=== PATIENT | female | born 1950 | race Caucasian/White ===

== ENCOUNTER → 2020-12-21 09:47 | Outpatient (CLI) | payer MEDICARE, OTHER, SELFPAY ==
--- NOTE | 2020-12-21 10:07 | DI.CT.S_ITS ---
PROCEDURE: CT LUMBAR SPINE WO CON INDICATIONS: Spinal stenosis, lumbar region without neurogenic TECHNIQUE: Noncontrast 3 mm thick sections acquired from the T12 level to the sacrum. Sagittal and coronal reformats were constructed. For radiation dose reduction, the following was used: automated exposure control. COMPARISON: [facility], CT, CT ABDOMEN PELVIS WITH CONTRAST, 12/02/2018, 14:08. [facility] [place], CR, XR LUMBAR SPINE 2 OR 3 VIEWS, 05/29/2019, 9:43. [facility], MR, MR LUMBAR SPINE WITHOUT CONTRAST, 06/16/2019, 17:07. FINDINGS: Image quality: There is artifact associated with the metallic hardware. Bones: No acute vertebral body compression fractures. No suspicious lytic or blastic bony lesions. No pars defects. There is moderate to prominent levoconvex lumbar scoliosis. T12-L1: No significant abnormality is seen. L1-L2: Moderate to severe loss of disc height is seen. Endplate irregularity and sclerosis can be seen. Vacuum disc phenomenon is seen at this level. Mild to moderate disc bulge is seen. There is a central/left disc protrusion. There is moderate left-sided and no right-sided neural foraminal narrowing seen. Mild central canal narrowing is seen. When comparison is made with the prior images, these findings are similar. L2-L3: At least moderate loss of disc height is seen. Vacuum disc phenomenon is seen at this level. Endplate irregularity and sclerosis can be seen. Moderate facet joint hypertrophy is seen. Mild bilateral neural foraminal narrowing is seen. Mild central canal narrowing is seen. L3-L4: At least moderate loss of disc height is seen. Endplate irregularity and sclerosis can be seen. Vacuum disc phenomenon is seen at this level. Moderate generalized disc bulge is seen. There is mild left-sided and at least moderate right-sided neural foraminal narrowing seen. Mild to moderate central canal narrowing is seen. L4-L5: Relo-on-fzgmkzso loss of disc height is seen. Vacuum disc phenomenon is seen at this level. Endplate irregularity and sclerosis can be seen. At least moderate disc bulge is seen. Posteriorly projected endplate osteophytes are seen. Moderate to prominent facet hypertrophy can be seen. There is zflo-pp-ayrvakju right-sided and moderate left-sided neural foraminal narrowing seen. Moderate central canal narrowing is seen. L5-S1: Postoperative changes are seen, with bilateral pedicle screws and vertical fixation rods. Screws appear well placed, with the tip of the right S1 screw seen protruding beyond the anterior cortex. There is a disc spacer seen. There has been removal of portions of the posterior elements. Pgcw-tw-[id number] loss of disc height is seen. Vacuum disc phenomenon is seen at this level. Mild to moderate disc bulge is seen. At least moderate facet hypertrophy can be seen. There is mild right-sided and at least moderate left-sided neural foraminal narrowing seen. Soft tissues: No retroperitoneal masses or hematomas. Visualized aorta is normal in caliber. Atherosclerotic calcification is noted. Colonic diverticulosis is seen, without findings of active diverticulitis. IMPRESSION: Intact appearing L5-S1 postoperative hardware. Multiple levels of degenerative change are seen, which are similar to the prior MRI. Moderate to prominent levoconvex lumbar scoliosis. Dictated by: Edgar Estrada M.D. on 12/21/2020 at 11:18 Approved by: Edgar Estrada M.D. on 12/21/2020 at 11:26
== END ==
PROVIDERS: Family Provider Family Medicine; PCP Family Medicine; Referring Provider Orthopaedic Surgery Orthopaedic Surgery of the Spine; Visit Provider Orthopaedic Surgery Orthopaedic Surgery of the Spine
DX: Z01.818 Encounter for other preprocedural examination (principal); M48.061 Spinal stenosis, lumbar region without neurogenic claudication; R73.9 Hyperglycemia, unspecified; M47.816 Spondylosis without myelopathy or radiculopathy, lumbar region; M47.817 Spondylosis without myelopathy or radiculopathy, lumbosacral region; M41.86 Other forms of scoliosis, lumbar region
CPT/HCPCS: 72131; 93005; 93010

== ENCOUNTER → 2021-01-23 10:48 | Outpatient (CLI) | payer MEDICARE, OTHER, SELFPAY ==
[2021-01-23 15:20] LABS: COVID19 -Nasal RAPID Negative (Negative)
== END ==
PROVIDERS: Family Provider Family Medicine; PCP Family Medicine; Visit Provider Physician Assistant
DX: Z01.812 Encounter for preprocedural laboratory examination (principal); Z20.822 Contact with and (suspected) exposure to COVID-19
CPT/HCPCS: 87635

== ENCOUNTER 2021-01-25 07:19 | Inpatient (IN) | payer MEDICARE, OTHER, SELFPAY ==
[2021-01-23 12:59] VITALS: BMI 25.9
[2021-01-25] VITALS (21 sets, daily range): BP systolic 113–195; BP diastolic 58–98; PULSE 77–106; RESP 8–19; TEMP 36.1–36.9; O2SAT 4–99; BMI 25.9
--- NOTE | 2021-01-25 | DI.RAD.S_ITS ---
PROCEDURE: XR LUMBAR SPINE 2-3V INDICATIONS: L2-5 TLIF, L2-S1 PSF W/INSTRUMENTATION L5-S1 LUMBAR HWR,EXPL TECHNIQUE: 4 low resolution fluoroscopic spot films were obtained intraoperatively COMPARISON: [facility] , L-SPINE 2-3 VIEWS, 09/20/2016, 13:28. FINDINGS: Low resolution spot films of the lower lumbar spine show sequential placement of discectomy and fusion spacer grafts and posterior adam and screw instrumentation. Overlying artifact noted. IMPRESSION: Fluoroscopic guidance Approved by: Kamar Swenson M.D. on 01/25/2021 at 14:53
[2021-01-25] MEDS: LACTATED RINGERS 1,000 ML 42 ML IV ×3 (08:25→12:43)
[2021-01-25] MEDS: MIDAZOLAM 2 MG/2 ML VIAL IV (08:46)
[2021-01-25] MEDS: CEFAZOLIN 1 GM VIAL 2 GM IV (09:05)
--- NOTE | 2021-01-25 09:40 | SUR.OPER ---
Prone on spine table, head in foam head support, padded chest and pelvic supports, gel pad at knees, lower legs supported by pillows; nipples, genitalia and toes free of pressure, arms secured on foam padded arm boards at <90 degrees abduction. Tape over blanket at thigh secured to table.
[2021-01-25] MEDS: BUPIVACAINE LIPOSOME 266 MG/20 ML VIAL INJ (09:46)
[2021-01-25] MEDS: BUPIVACAINE 0.25% W/ EPI 30 ML VIAL INJ (09:47)
--- NOTE | 2021-01-25 14:35 | PM.OP.1 ---
Operative Date/Time/Diagnoses Date of procedure: 01/25/21 Time of procedure: 08:44 Pre-op diagnosis: 1. Lumbar scoliosis 2. Hx of L5-S1 fusion with instrumentation 3. Lumbar spinal stenosis with neurogenic claudication 4. Lumbar spondylolisthesis Post-op diagnosis: same Procedure & Clinicians Procedure: 1. L3-4, L4-5 posterolateral and posterior interbody fusion 2. L3-4, L4-5 posterior interbody cage placement 3. L5-S1 posterior non-segmental instrumentation removal 4. L5-S1 revision laminectomy with exploration of fusion 5. L3-4, L4-5, L5-S1 posterior segmental instrumentation with pedicle screw placement 6. L5-S1 posterolatearl fusion 7. [place] of bone marrow from iliac crest through a separate incision 8. Utilization of microsurgical technique and operating microscope 9. Robotic assisted surgery with navigation Same procedure as scheduled: Yes Indications: Patient has been having chronic back pain and worsening lumbar radiculopathy. Patient had prior fusion surgery more than a year ago with progressively worsening back pain and bilateral lower extremity weakness numbness consistent with neurogenic claudication. Patient failed multiple conservative management with worsening pain weakness and numbness in her lower extremity. Patient has been having difficulty performing activity of daily living. After discussing risks benefits of treatment options, patient elected proceed with surgery. Surgeon: Bryce Evangelista Collision Worker: Danisha Romano Click Yes if Unassisted: No Anesthesia Type: General Operative Notes Closure Type: primary Specimen(s): none sent Prosthetic devices, grafts, tissues, transplants, or devices: Globus CREO MIS screws, Rise cages Applied: catheter Estimated Blood Loss (mL): 200 Blood products transfused: none Procedure in detail: Patient was seen in the preoperative area. Risks and benefits of the surgery was discussed with the patient. Informed consent was obtained from the patient and placed in the chart. Surgical site was marked. Patient was taken to the operative room. General anesthesia was administered. Prophylactic antibiotic was given to the patient less than 30 min before the incision was made. Patient was placed into a prone position on the Bj table. Patient's back was then prepped and draped in the sterile fashion. Time-out was performed at this time. After patient was prepped and draped, patient's PSIS was palpated and marked bilaterally. Small 1 cm incision was made over the PSIS for placement of the reference probes. Two trocar was placed into the PSIS 1 on each side. The reference probe was attached to the trocar of the reference apparatus. At this time the C-arm imaging was used to confirm AP and lateral of L3, L4, L5, and S1 vertebrae and merged the C-arm imaging using the [employer] robotic navigation system with the CT of the lumbar spine. After successful merging was completed and confirmed, skin marker was used to gilmar out the skin incision using the [employer] robotic arm. Bilateral incision was made at this time. Using patient's previous scar incision was made over the L5-S1 interval on the right side. Fascia was incised in line with skin incision. Patient's previously placed hardware over the L5-S1 level was identified by dissecting down to the level the hardware using a Bovie and a Clemente. The locking caps which was removed using [employer] screwdriver. The locking adam was then removed from the tulips of the pedicle screws using a Papo. The pedicle screws were then removed using the screwdriver. The screws were found to have good purchase. Pre templated trajectory was used and guided using the [employer] robotic navigation system for left L3, L4, L5 and S1 pedicle screws and right L3, L4 L5, and S1 pedicle screws placement. The right L4 pedicle was identified to have a fracture through right prior to this recent surgery, confirmed on the recent CT scan. Pedicle screw was attempted to be placed into the right L4 pedicle which was found to have poor purchase and decision was made to remove the screw pedicle due to its poor purchase. This was done by using the robotic arm to guide the high-speed bur to make a cortical entry point. Next a drill was placed also using the robotic arm and guided using the navigation system drilling partially through bilateral L3, L4, L5, S1 pedicles except right L4 pedicle. Next L3, L4, L5, S1 pedicle screws it was pre templated and measured was placed onto the power auto transport driver and inserted into the pedicles bilaterally. After all 7 screws were placed C-arm imaging was taken of both AP and lateral to confirm the placement. Excellent placement of the screws were confirmed and a matched precisely with the pre planned screw placement using the navigation system. MARs retractor was inserted using [employer]ivation guidence. Globus MARS retractors was placed inside the incision and docked onto the L3, L4 lamina. Using microsurgical technique and operating microscope, a L3, L4 laminectomy and L3-4, L4-5 facetectomy was performed using a Kerrison rongeur. Patient was found have severe lateral recess and neural foramen stenosis which was fully decompressed after the laminectomy facetectomy. More than 75% of the facets were removed during the process of decompression rendering L3-4, L4-5 level grossly unstable and required a fusion procedure at the same time. The disc space at L3-4, L4-5 was identified, and a total diskectomy was performed at L3-4, L4-5 level. The endplates were decorticated using a rasp and shaver. The total diskectomy and decortication was performed at L3-4, L4-5 level in order to to accomplish a L3-4, L4-5 fusion. The local bone from the laminectomy and facetectomy was saved for local bone grafting. After the total diskectomy and decortication was completed, Trifecta bone graft material was combined with local bone that was harvested earlier. At this time, a separate skin is incision was made over the iliac crest. A Jamshidi needle was inserted into the iliac crest through a separate skin incision. 5 cc of bone marrow aspiration was obtained through the separate skin incision using a Jamshidi needle from the iliac crest. The bone marrow aspiration was combined with local bone and the Trifecta bone grafting material. The bone grafting material was placed into the L3-4, L4-5 interbody space along with a expandable cage. The cage was expanded to its maximum height using the torque limiting screwdriver. The disc preparation as well as the cage insertion were also performed under navigation guidance. After the cage was placed, AP and lateral C-arm imaging was taken to confirm placement of the cage and excellent position was confirmed. The fusion mass on the left side of L5-S1 was exposed by performing a left-sided hemilaminectomy at L5-S1 level. The hemilaminectomy was performed using the Kerrison rongeur to undercut the lamina as well removing additional epidural scar tissue for purpose of decompressing the epidural space. The fusion mass was explored and was found have visible motion indicating pseudoarthrosis. Globus MARS retractor was inserted and docked onto the L3-4, L4-5 L5-S1 posterolateral gutter. Using the power drill, posterior-lateral decortication was performed at L3-4, L4-5 L5-S1 level until bleeding cortical bone was identified. The remaining bone grafting material was placed into the L3-4, L4-5 L5-S1 posterior lateral gutter he order to accomplish posterolateral fusion at the L3-4, L4-5 L5-S1 level. At this time the tulips were attached to the L3, L4-L5 and S1 pedicle screw shanks. This was done in L3 L4-L5 S1 pedicles bilaterally except the right L4 pedicle which was left un nstrumented on purpose. After measuring the length of the rods, they were inserted into the tulips of the pedicle screws and locked in place using locking caps and torque limiting screwdriver bilaterally. Total 7 caps and 2 titanium rods was used in order to complete the posterior instrumentation construct. Previously L2-3 level and possibly L1 pedicle were considered to be surgically instrumented. Due to patient's congenitally small pedicles as well as deformity and osteopenia, reliable robotic navigation was not able to be accomplished at L1 and L2 level. Decision was made to not perform the L2-3 level fusion and the L1-L2 pedicle screw placement intraoperatively. After all the hardware was placed, and confirmed with AP and lateral C-arm imaging, the wound was then irrigated with sterile normal saline and packed with Ray-Hiram gauze for 3 min to accomplish hemostasis. After the gauze was removed the deep fascia was closed with #1 Vicryl suture. The subcutaneous layer was closed with 2-0 Vicryl. The skin was closed with skin parrish. Patient tolerated the procedure well. There were no complications. Neuro monitoring system was used to monitor patient's neurologic status throughout entire procedure. There was no disturbance of the neural monitoring signals throughout the case. Complications: none Post-operative Condition: stable Disposition: PACU Plan for aftercare: Admit to inpatient hospital
[2021-01-25] MEDS: fentaNYL 100 MCG/2 ML INJ 50 MCG IV ×2 (14:56→15:20)
[2021-01-25] MEDS: HYDROMORPHONE 2 MG INJ ×4 (15:05→15:58)
[2021-01-25] MEDS: LORazepam 2 MG/ML INJ 0.25 MG IV (15:09)
[2021-01-25] MEDS: hydrOXYzine 50 MG/ML INJ 25 MG IM (15:17)
--- NOTE | 2021-01-25 15:29 | PM.PREOP ---
Pre-operative Note COVID-19 COVID-19 status: Negative Result date/Date tested (Pos, Neg/Pending): 01/23/21 Interval Note History & Physical reviewed/Exam performed by Physician: Yes Changes to H&P: No
[2021-01-25] MEDS: ONDANSETRON 4 MG/2 ML INJ IV (16:33)
[2021-01-25] MEDS: OXYCODONE/ACETAMINOPHEN 5/325 TABLET 2 TAB PO (16:36)
[2021-01-25] MEDS: diazePAM 10 MG/2 ML SYRINGE 5 MG IV (17:32)
[2021-01-25] MEDS: SODIUM CHLORIDE 0.9% 1,000 ML 100 ML IV (17:32)
[2021-01-25] MEDS: GABAPENTIN 600 MG TABLET PO ×2 (18:19→20:35)
[2021-01-25] MEDS: OXYCODONE IR 5 MG TABLET 10 MG PO ×2 (18:46→21:40)
[2021-01-25] MEDS: CLINDAMYCIN 600 MG/50 ML PIGGYBACK 50 MG IV (18:47)
[2021-01-25] MEDS: LATANOPROST 0.005% OPHTH 2.5 ML 1 DROPS EYE-BOTH (20:31)
[2021-01-25] MEDS: DOCUSATE 100 MG CAPSULE PO (20:35)
[2021-01-25] MEDS: SENNOSIDES 8.6 MG TABLET 17.2 MG PO (20:35)
[2021-01-25] MEDS: ATORVASTATIN 20 MG TABLET PO (20:35)
[2021-01-25] MEDS: sulfaSALAzine 500 MG TABLET 1000 MG PO (20:36)
[2021-01-25] MEDS: diazePAM 5 MG TABLET PO (23:48)
[2021-01-26] VITALS (7 sets, daily range): BP systolic 82–135; BP diastolic 45–62; PULSE 74–89; RESP 14–18; TEMP 36.3–37.2; O2SAT 97–98
--- NOTE | 2021-01-26 01:00 | PC.NURSE ---
Evening Shift/Admit Note- Patient arrived to room via bed from PACU approx 1715. Patient drowsy but easilty waked and noriented. Patient reports pain and spasms. PRN IV Valium given for spasms. Admit questions doen, medications reviewed, physical assessment done, and skin check completed. Patient oriented to bed and bed cobtrols, room, lights, menu, and call mohr/tv remote. Safety measures in place. Patient agrees to call for assistance. Bed alarm activated. Feliz patient and draiining to gravity. call mohr and phone within reach. will continue to monitor.
[2021-01-26] MEDS: CLINDAMYCIN 600 MG/50 ML PIGGYBACK 50 MG IV (02:37)
[2021-01-26] MEDS: OXYCODONE IR 5 MG TABLET 10 MG PO ×5 (02:37→16:24)
[2021-01-26] MEDS: SODIUM CHLORIDE 0.9% 1,000 ML 100 ML IV ×2 (05:14→22:00)
[2021-01-26] MEDS: hydrOXYzine pamoate 25 MG CAPSULE PO ×2 (05:52→13:12)
[2021-01-26 06:28] LABS: Hematocrit 34.3 % (36-46); Hemoglobin 10.9 g/dL (12.0-16.0)
[2021-01-26] MEDS: PANTOPRAZOLE DR 40 MG TABLET PO (09:02)
[2021-01-26] MEDS: GABAPENTIN 600 MG TABLET PO ×3 (09:02→20:38)
[2021-01-26] MEDS: DOCUSATE 100 MG CAPSULE PO ×2 (09:02→20:38)
[2021-01-26] MEDS: FUROSEMIDE 20 MG TABLET PO (09:02)
[2021-01-26] MEDS: lisinopriL 10 MG TABLET PO (09:02)
[2021-01-26] MEDS: VENLAFAXINE ER 75 MG CAP PO (09:03)
[2021-01-26] MEDS: LETROZOLE 2.5 MG TABLET PO (09:03)
[2021-01-26] MEDS: FOLIC ACID 0.4 MG TABLET PO (09:03)
[2021-01-26] MEDS: sulfaSALAzine 500 MG TABLET 1000 MG PO ×2 (09:03→20:38)
[2021-01-26] MEDS: OXYBUTYNIN 5 MG ER TAB 10 MG PO (09:03)
--- NOTE | 2021-01-26 10:15 | PT.IIE ---
Current Diagnoses Other forms of scoliosis, lumbar region (01/25/21) Spinal stenosis, lumbar region without neurogenic claudication (01/25/21) Arthrodesis status (01/25/21) Surgery Performed Operation Date: 01/25/21 08:45 Actual Procedures p L2-5 TLIF,L2-S1 PSF w/instrumentation L5-S1 lumbar HWR,exploration of fusion,repeat laminectomy,reinsertion of hardware(Not Applicable) - Bryce Evangelista MD Medical History (Last Reviewed 01/26/21 @ 13:46 by Danisha Romano PA-C) Arthritis Breast cancer, left (2012) COPD (chronic obstructive pulmonary disease) Easy bruisability History of revision of total replacement of right knee joint (2009) HLD (hyperlipidemia) HTN (hypertension) Hx of Crohn's disease (1993) Lymphedema KIMMY on CPAP Osteoarthritis Panic attacks Right femoral fracture (2012) Sepsis (2016) Physical Therapy Inpatient Evaluation/Re-Eval M1 PT/OT-IP Prior Functional Status Start: 01/26/21 13:39 Freq: NEEDED Status: Active Protocol: Document 01/26/21 10:15 AB (Rec: 01/26/21 13:50 AB [id number]) Medical Review Prior Functional Status Medical History Reviewed Yes Communication able to make needs known; with confusion Mobility and Gait pt stated that she is independent with all mobilities and ambulation without AD Social History Household Members none Living Arrangements House Number of Floors (Floors) One Floor Number of Stairs To Enter/Railing? 2 steps wtihout rails from the garage but has R side tall tool box that pt uses for support 2 steps L rail from the front Home Environment Standard Height Toilet Home Equipment Front Wheel Walker,Quad Cane, Straight Cane,Raised Toilet Seat w/Armrests Additional Social History Comment pt stated that her daughter will be able to stay and assist her at home and will also have friends/neighbors to assist her as needed Pt has a walk in bath tub pt stated that her daughter ordered a bed cane for her to use M2 PT-IP Current Condition Start: 01/26/21 13:39 Freq: NEEDED Status: Active Protocol: Document 01/26/21 10:15 AB (Rec: 01/26/21 13:50 AB [email or web address]) Physical Therapy Current Condition Current Condition Evaluation Date 01/26/21 Treatment Diagnosis s/p L3-4, L4-5, L5S1 TLIF; difficulty in walking Onset Date 01/25/21 M3 PT-IP Subjective Start: 01/26/21 13:39 Freq: NEEDED Status: Active Protocol: Document 01/26/21 10:15 AB (Rec: 01/26/21 13:50 AB [email or web address]) Subjective Physical Therapy Visit Type Type Initial Evaluation Visit Start Time 10:15 Visit Stop Time 11:15 Total Visit Minutes 60 Number of BUFFING MACHINE TENDER Visits 0 Physical Therapy Visit Comments Patient Comments agreeable to do PT Therapy Pain Assessment Pain When Pain Assessed At Rest Pain Present Pain Present Pain Reported Location Lower Back Intensity 5 Scale Used increases to 7/10 with mobility Pain Management Techniques Apply Cold,Modification of Treatment,Re-positioning, Timing of Activity with Medications M4 PT-IP Mobility and Gait Start: 01/26/21 13:39 Freq: NEEDED Status: Active Protocol: Document 01/26/21 10:15 AB (Rec: 01/26/21 13:50 AB [email or web address]) PT-Bed Mobility Assessment Rolling Type of Rolling Log Rolling Level of Assist Minimal Assistance Supine to Sit Supine to Sit Minimal Assistance Sit to Supine Sit to Supine Minimal Assistance PT-Transfer Assessment Sit to and From Stand Sit to and from Stand Minimal Assistance,1 Person Assistance,Use of Upper Extremities Equipment Transfer Assistive Device Gait Belt,Front Wheeled Walker Orthotic/Prosthetic Devices or Brace: No Transfers Transfer Destination Chair Transfer Technique ambulated using FWW Transfer Ability Level of Assist Minimal Assistance,Use of Upper Extremities Comments Mobility Comments educated on back precautions and log roll bed mobility. completed supine to sit min A and max cues. pt was able to sit on EOB CGA with increase posterior trunk leaning requiring cues for steadiness. completed sit to stand min A and cues and ambulated to the chair using FWW min A ~ 12 ft . pt sat on chair only for ~ 5 min and stated that she cannot stay up on the chair due to pain and wants to go back to bed. completed sit to stand min A and ambulated back to bed ~ 12 ft using FWW min A. completed sit to supine min A with LE elevation . positioned on bed sidelying . ice pack positioned. call light and table placed wtihin reach. Gait Assessment Gait Gait Assistance Required: Minimum Assistance Distance (Feet) 12 Able to Maintain Weight Bearing Status Yes During Gait Assistive Devices Assistive Device Gait Belt,Front Wheeled Walker Orthotic/Prosthetic Devices or Brace: No Gait Deviations General Gait Pattern Antalgic,Decreased Stride Length,Decreased Feet Clearance,Step-to Gait Factors Limiting Gait Function Factors Limiting Gait Function Decreased Activity Tolerance, Decreased Strength,Difficulty Following Directions,Limited Range of Motion,Pain,Poor Balance,Poor Safety Awareness PT-Balance Assessment Sitting Balance and Reactions Static Sitting Balance Ability Good Dynamic Sitting Balance Ability Fair Standing Balance and Reactions Static Standing Balance Ability Fair Dynamic Standing Balance Ability Fair Device Used FWW M5 PT-IP Objective Assessments Start: 01/26/21 13:39 Freq: NEEDED Status: Active Protocol: Document 01/26/21 10:15 AB (Rec: 01/26/21 13:50 AB [email or web address]) Orientation Orientation/Cognition Level of Alertness Alert Orientation Name,Place,Situation Language Function Ability No Deficits Noted Safety Awareness Decreased Safety Awareness Memory Description Short Term Impaired Gross Range of Motion Lower Extremity ROM Assessment Within Functional Limits Strength Lower Extremity Strength Assessment Bilaterally Impaired Hip 4-/5 Knee 4-/5 Coordination Assessment Gross Coordination Gross Coordination WNL Sensation Assessment Sensation Gross Sensation WNL Muscle Tone Muscle Tone WNL Yes M6 PT-IP Treatment Start: 01/26/21 13:39 Freq: NEEDED Status: Active Protocol: Document 01/26/21 10:15 AB (Rec: 01/26/21 13:50 AB [email or web address]) Physical Therapy Treatment Education Education Provided Precautions,Weight Bearing Status,Post-Op Packet,Safety M7 PT-IP Assessment and Plan Start: 01/26/21 13:39 Freq: NEEDED Status: Active Protocol: Document 01/26/21 10:15 AB (Rec: 01/26/21 13:50 AB [email or web address]) PT Summary Assessment and Plan Potential Rehabilitation Potential Good Status of Condition at Evaluation Evolving Summary Impairments Pain,ROM,Strength,Balance, Coordination,Sensation,Tone, Cognition,Bed Mobility, Transfers,Gait,Activity Tolerance Assessment Summary pt requiring min A with transfers/ambulation using FWW but was unable to tolerate much activity with c/o increase back pain. will continue to assess progress for safe d/c plan. pt plans to go home and stated that her daugther will be able to stay and assist her. will conduct caregiver training when appropriate as well as stair climbing training. Goals Bed Mobility Goal Standby Assistance Transfer Goal Standby Assistance,Front Wheeled Walker Gait Goal Standby Assistance,Front Wheel Walker Gait Distance 100 Other Goals improve bed mobility mod I improve ambulation using FWW 200 ft SBA up/down 2 steps R rail SBA Days to Meet Goals 5 Frequency of Treatment Frequency Of Treatment Twice a Day Treatment Plan Physical Therapy Treatment Plan Bed Mobility Training,Transfer Training,Gait Training, Therapeutic Exercise,Balance Retraining,Post Op Education, Discharge Planning,Hot or Cold Pack,Neuromuscular Re-ed, Coordination Retraining,Manual Therapy Precautions Lumbar Precautions Log Roll,No Twisting,Limit Bending,Lifting Restriction of 10 lbs,Gait Belt above Incisional Area Recommendations To Nursing Amount of Assist Needed 1 Person Assist Discharge Recommendations PT Discharge Recommendations Home with 29/10 Assist Available,Home Health Transportation Needs at Discharge Private Vehicle
--- NOTE | 2021-01-26 11:26 | CM.DANOTE ---
Addendum entered by MACHO Landin 01/26/21 14:02: SW spoke to PT after initial eval and per PT pt had limited eval due to pain management issues but anticipates that once pt's pain is better controlled she will be able to progress enough to safely d/c home with family assist. SW to follow for further PT/OT to confirm plan of home and r/o HH. BF Original Note: Patient is a 70 yo female who was admitted on 01/25/21 for TLIF. Pt has [place] and [place] for [place] and her PCP is Clive Barrientos. EMR was reviewed. Per Ortho, pt's surgery was more extensive and took about 6 hours and pt arrived back to the floor very engineering administrator. PT/OT ordered and pending. Pt was last admitted in 2017 for lumbar surgery and was able to d/c home alone with family assist and support. SW met bedside with pt and explained role and she confirms she still lives alone in [place] but has local supportive Dtr/DPNIXON Peterson who plans to help at d/c and her friend will be available for support and another friend is a PT who will help pt as well. Pt is fairly active and independent at baseline and drives. Pt denies any hx of HH or SNF and became tearful during discussion about SNF stating I only want to go home, I don't want to stay anywhere else. Pt is very open and agreeable to HH and has no HH preference. Pt states she has attempted to set up good supports so that she can d/c home when stable for d/c. PT about to begin initial eval and recommendations towards determining if pt will progress enough for safe discharge home. Plan: SW to follow closely for OT and PT recommendations for home with assist and HH vs possible need of SNF. MACHO Landin Discharge Planning/Care Management CM Discharge Assessment Start: 01/26/21 11:24 Freq: Status: Active Protocol: Document 01/26/21 11:24 BF (Rec: 01/26/21 11:26 BF [id number]) Discharge Planning Assessment Assigned Repairer Screen Crusher MACHO Nicole DPOA/Assigned Designee Name Dtmehdi Peterson Contact Information [phone] Advance Directives? Yes Advance Directives on File Yes History Provided By Patient,Family Member,Medical Record Has Patient been admitted in last 30 No days? Prior Living Arrangements House Household Members none Type of transporation used prior to Drives own vehicle admit Independent with ADL's Yes Is patient alert and oriented? Yes Caregiver for Another No Community Services used prior to Physical Therapy admission: Patient/Family Preference Home with Home Health Barriers to Discharge No Discharge Plan Home with Home Health Transportation Arrangement Friend or Dtr plan to provide transport at d/c Additional Comment Pending PT/OT eval and recommendations Whiteboard Updated in Patient Room with Yes name and ext. # of Repairer Screen Crusher Review Status In Process Please Provide Date Initial DC 01/26/21 Assessment Was Performed Next Review Type Continued Stay Review Pre-Anesthesia Assessment Start: 01/23/21 12:58 Freq: Status: Complete Protocol: Document 01/23/21 12:59 [facility] (Rec: 01/23/21 13:56 CAB [id number]) Pre-Anesthesia Assessment Patient Information Reviewed Via Phone Assessment Assessment Completed With Patient Diagnostic Results BMP/CMP,CBC,EKG Comment Outside labs, EKG @ [facility], COVID screen 01/23/21 Pending Primary Care Provider Clive Barrientos Seen Specialist in Last 12 Months Yes Specialist Seen Orthopedist,Sleep specialist Primary Language Cuban Crisis Manager Required No Height 165.1 cm Weight 70.76 kg Body Mass Index (BMI) 25.9 Hearing Ability Normal Visual Assist Glasses Dentition Type Teeth, Natural Present,Dental Implants Hx Anesthesia Reactions No Hx Family Anesthesia Reaction No Hx Malignant Hyperthermia No Hx Blood Transfusions No Anesthesia Review Requested No alcohol intake current alcohol intake frequency 0-2 drinks per day Smoking Status Former smoker how long ago did patient quit smoking Quit 2006 Substance Use Type does not use Musculoskeletal Symptoms Abnormal Gait,Back Pain, Difficulty Walking History of Falling (Recent or History of Yes ) Patient is completely paralyzed or No completely immobile Prosthesis or Orthotic Device Cane Mental Status Oriented to own ability Is patient on oxygen? No Does patient have JOHNSON/SOB Yes: If I walk too much Hx Sleep Apnea Yes CPAP/BIPAP use prescribed and used routinely Will Bring CPAP/BIPAP DOS Yes Currently Taking a Beta La No Can You Climb a Flight of Stairs Without No SOB Hx Chest Pain No Hx SOB Yes: If I walk too much. I have the beginning of COPD Hx Syncope or Dizziness No Anti-Coagulant Therapy No Has a Bobtail Driver No Cardiac Testing No Hx Pacemaker/ICD No Pacemaker Rep Required? No Diet Type At Home Regular dysphagia No Bladder Pattern Incontinent,Urgency Urinary Catheter Present No Hx Urinary Self Catheterization No Diabetes No HgbA1C 4.3 Date 12/21/20 Patient No Lactating No Hx Drug Resistant Organism Yes: C-diff x 2 Presence of External or Internal Medical Yes: CPAP, lumbar, right knee, Devices breast markers Have you had any close contact with No someone diagnosed with COVID-19? Received a COVID vaccine? Yes: Pfizer Received all doses? Yes Marital Status / Lives With none Prior Living Arrangements House Support System Child/Children,Friend(s) Does the Patient Have Assistance After Yes: Daughter and friends will Surgery assist with care at DC Patient Discharge Plan Description Return Home Comment Pt advised 2-3 day length of stay per surgeon Feels Safe in Current Environment Yes Been Physically Hurt or Threatened By a No Person in Current Environment Do you have thoughts of harming yourself None or others? Are you currently considering suicide? No Do you have a plan to hurt yourself or No Plan others? Do You Have Any Spiritual Beliefs That No May Affect Your HC Choices? Do You Have Any Cultural Practices That No May Affect Your HC Choices? Who Can We Speak to About Patient's Care Family, friends Identifying Code for Release of Patient Declines to issue Information Health Care Proxy/Next of Kin Denise (daughter) Health Care Proxy Emergency Contact Name Denise (daughter) Emergency Contact Advance Directives? Yes Advance Directives on File Yes Requested Patient Bring Advanced No Directives DOS Power of Supplier Quality Engineering Manager Yes Power of Supplier Quality Engineering Manager Name Denise (chely) Power of Supplier Quality Engineering Manager PAC Instructions Bring CPAP/BIPAP,Durable medical equipment,Medications to take/avoid,Nasal antibiotic ,No ETOH/petroleum product on skin DOS,NPO,Post-op transportation,Pre-surgical wash,Sensory aids,Sturdy shoes /comfortable clothes,Do not bring valuables and remove jewelry
--- NOTE | 2021-01-26 13:44 | PM.PNPO.1 ---
Subjective Subjective Date Patient Seen: 01/26/21 Time Patient Seen: 13:44 Interval history: The patient is complaining of moderate low back pain. She notes the pain is 7/10. She denies any new numbness or tingling, but continues to have her baseline numbness. No nausea or vomiting. No fevers, chills, night sweats. The patient is working with physical therapy. She currently does not feel safe to go home and pain management is an issue. Exam Vital Signs (past 8 hours): - 01/26/21 09:02 01/26/21 11:32 Temperature 97.4 F L Pulse Rate 83 Respiratory Rate 16 Blood Pressure 129/59 L 129/59 L Pulse Oximetry 97 Oxygen Delivery Method Room Air,CPAP Oxygen Flow Rate 0 Narrative Exam Narrative: Pleasant 70-year-old female, resting in her chair, mild distress/discomfort. Her dressing is clean, dry, intact. Bilateral lower extremity motor function is grossly intact. She is grossly intact to light touch in bilateral lower extremities. Bilateral calves are soft, nontender to palpation. She has slow moving and still has her safety belt on from physical therapy. Objective Labs Result Diagrams: 01/26/21 06:08 Labs: Laboratory Results - last 24 hr 01/26/21 06:08 Hgb 10.9 L Hct 34.3 L PFSH Medical History Arthritis Breast cancer, left (2012) COPD (chronic obstructive pulmonary disease) Easy bruisability History of revision of total replacement of right knee joint (2009) HLD (hyperlipidemia) HTN (hypertension) Hx of Crohn's disease (1993) Lymphedema KIMMY on CPAP Osteoarthritis Panic attacks Right femoral fracture (2012) Sepsis (2016) Surgical History History of hysterectomy (1993) History of lumbar fusion (09/20/16) History of lumpectomy of left breast (2012) History of right knee joint replacement (2008) Hx of appendectomy Hx of bladder repair surgery Hx of tonsillectomy Social History household members: none Smoking Status: Former smoker alcohol intake: current Assessment & Plan Post-op Postoperative Procedures: Procedures Operation Date: 01/25/21 08:45 Actual Procedure Side Surgeon p L2-5 TLIF,L2-S1 PSF w/instrumentation L5-S1 lumbar HWR,exploration of fusion,repeat laminectomy,reinsertion of hardware Not Applicable Bryce Evangelista MD Postoperative day: 1 Postoperative status: marginal pain control Postoperative status narrative: Stable status post L2-5 TLIF, L2-S1 PSF with instrumentation, hardware removal at L5-S1 Postoperative plan narrative: The patient states her pain is 7/10, we will work on pain control. Limit bending, lifting, twisting. Mobilize with PT. Weightbearing as tolerated from a walker Likely discharge home in 1-2 days. Quality VTE Deep Vein Thrombosis/Pulmonary Embolism Present on Admission: No
--- NOTE | 2021-01-26 13:46 | PC.NURSE ---
Assuming care of patient, patient laying in bed on her right side talking with OT. Patient requested to take vistaril as ordered prn. No complaints at this time, call light within reach.
--- NOTE | 2021-01-26 14:38 | OT.IP.EVAL ---
Current Diagnoses Other forms of scoliosis, lumbar region (01/25/21) Spinal stenosis, lumbar region without neurogenic claudication (01/25/21) Arthrodesis status (01/25/21) Surgery Performed Operation Date: 01/25/21 08:45 Actual Procedures p L2-5 TLIF,L2-S1 PSF w/instrumentation L5-S1 lumbar HWR,exploration of fusion,repeat laminectomy,reinsertion of hardware(Not Applicable) - Bryce Evangelista MD Past Medical History (Last Reviewed 01/26/21 @ 13:46 by Danisha Romano PA-C) Arthritis Breast cancer, left (2012) COPD (chronic obstructive pulmonary disease) Easy bruisability History of hysterectomy (1993) History of lumbar fusion (09/20/16) History of lumpectomy of left breast (2012) 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) HLD (hyperlipidemia) HTN (hypertension) Hx of appendectomy Hx of bladder repair surgery Hx of Crohn's disease (1993) Hx of tonsillectomy Lymphedema KIMMY on CPAP Osteoarthritis Panic attacks Right femoral fracture (2012) Sepsis (2016) Surgical History (Last Reviewed 01/26/21 @ 13:46 by Danisha Romano PA-C) History of hysterectomy (1993) History of lumbar fusion (09/20/16) History of lumpectomy of left breast (2012) History of right knee joint replacement (2008) Hx of appendectomy Hx of bladder repair surgery Hx of tonsillectomy Occupational Therapy Inpatient Evaluation/Re-Eval M1 PT/OT-IP Prior Functional Status Start: 01/26/21 13:39 Freq: NEEDED Status: Active Protocol: Document 01/26/21 14:48 [facility] (Rec: 01/26/21 15:07 [facility] [id number]) Medical Review Prior Functional Status Medical History Reviewed Yes Communication able to make needs known; with confusion Mobility and Gait pt stated that she is independent with all mobilities and ambulation without AD Activities of Daily Living and IADL's Pt states completely independent with all her ADl and IADL needs. Social History Household Members none, 2 dogs Living Arrangements House Number of Floors (Floors) One Floor Number of Stairs To Enter/Railing? 2 steps without rails from the garage but has R side tall tool box that pt uses for support 2 steps L rail from the front Home Environment Standard Height Toilet Home Equipment Front Wheel Walker,Quad Cane, Straight Cane,Raised Toilet Seat w/Armrests Additional Social History Comment pt stated that her daughter will be able to stay and assist her at home and will also have friends/neighbors to assist her as needed Pt has a walk in bath tub pt stated that her daughter ordered a bed cane for her to use. Pt states to have another grab bar installed for the walk in tub soon. M2 OT-IP Current Condition Start: 01/26/21 14:47 Freq: Status: Active Protocol: Document 01/26/21 14:48 [facility] (Rec: 01/26/21 15:07 [facility] [id number]) Occupational Therapy Current Condition Current Condition Evaluation Date 01/26/21 Treatment Diagnosis S/P L3-S1 TLIF, decreased mobility Post Operative Precautions Lumbar Precautions Log Roll,No Twisting,Limit Bending,Lifting Restriction of 10 lbs,Gait Belt above Incisional Area M3 OT- IP Subjective and Pain Start: 01/26/21 14:47 Freq: Status: Active Protocol: Document 01/26/21 14:48 [facility] (Rec: 01/26/21 15:07 [facility] [id number]) OT- Subjective Occupational Therapy Visit Type Type Initial Evaluation Visit Start Time 13:01 Visit Stop Time 14:38 Total Visit Minutes 56 Notes Pt seen for split treatment from [id number], [id number]. Occupational Therapy Visit Comments Patient Comments Pt agreed to get up for OT eval. Patient/Caregiver Goals To go home. M4 OT- IP ADL's Start: 01/26/21 14:47 Freq: Status: Active Protocol: Document 01/26/21 14:48 [facility] (Rec: 01/26/21 15:07 [facility] [id number]) OT ADL-Grooming Comments OT Grooming Comments Pt able to wash her hands while standing at this time with FWW. OT ADL-Dressing Comments OT Dressing Comments Not able to practice today, pt has all the LB dressing equipment at home. OT ADL-Toileting General Evaluation Toileting Ability Minimal Assistance Comments OT Toileting Comments Pt able to sit to the toilet with ELOY to ease down to the toilet in addition to use of grab bar to assist. Pt able to reach to wipe while standing but needing assist for completeness. Educated pt on the option of toilet paper aid versus bidet. Pt states has wipes to use at home. Pt agreed to wear pads for safety. OT ADL-Bathing Comments OT Bathing Comments NOt at this time. M5 OT- IP IADL's Start: 01/26/21 14:47 Freq: Status: Active Protocol: Document 01/26/21 14:48 [facility] (Rec: 01/26/21 15:07 [facility] [id number]) OT-Instrumental Activities of Daily Living Home Safety Awareness Awareness of Need for Assistance at Home Good Awareness Ability to Problem Solve Emergency Able to Problem Solve Situations Home Safety Comments Pt's family to assist and stay with her at home initially. M6 OT- IP Functional Cognition Start: 01/26/21 14:47 Freq: Status: Active Protocol: Document 01/26/21 14:48 [facility] (Rec: 01/26/21 15:07 [facility] [id number]) Cognitive Factors Limiting Selfcare Function Cognitive Ability Level of Alertness Alert Patient Orientation Name,Age,Birthday,Month,Date, Year,Day of Week,Place, Situation Attention Span Ability Capable of Focused Attention, Capable of Sustained Attention Ability to Follow Commands Able to Follow One Step Commands Safety Awareness Decreased Recall of Precautions Cognitive Comments Cognitive Assessment Comments Pt needing reminders to recall her back precautions. Pt needing cues for transitions of bed mobility and coming from sit to stand. Educated pt push up from the bed with one hand and other of the fww. OT- Vision and Hearing OT- Hearing Assessment OT- Hearing Assessment WFL OT- Vision Assessment Visual Acuity Glasses All The Time M7 OT- IP Mobility and Balance Start: 01/26/21 14:47 Freq: Status: Active Protocol: Document 01/26/21 14:48 [facility] (Rec: 01/26/21 15:07 [facility] [id number]) OT- Bed Mobility Assessment Rolling Type of Rolling Roll to Right Level of Assistance Minimal Assistance Supine to Sit Supine to Sit Assist Minimal Assistance,1 Person Assistance,Bedrails OT-Transfer Assessment Sit to and From Stand Sit to and from Stand Minimal Assistance,1 Person Assistance Transfers Transfer Ability Contact Guard Assistance,1 Person Assistance Technique Transfer Destination Bed,Chair,Toilet Transfer Technique Stand Step Pivot Devices Transfer Assistive Devices Gait Belt,Front Wheeled Walker Comments Mobility Comments ELOY to help get her hips closer to the edge of the bed with green pad and use of bed rail to help get upright. Pt ELOY to stand from lower surfaces. Pt not symptomatic but looking pale so BP taken and BP 66/44 while sitting and then 82/40 and 82/50 reclined . Nursing came and MANAGER MARKET also present to take over to assist pt back to bed. OT- Gait Assessment Comments Gait Ability Comments CGA with FWW. OT- Balance Assessment Sitting Balance and Reactions Static Sitting Balance Ability Good Dynamic Sitting Balance Ability Good Standing Balance and Reactions Static Standing Balance Ability Fair M8 OT- IP Objective Assessments Start: 01/26/21 14:47 Freq: Status: Active Protocol: Document 01/26/21 14:48 [facility] (Rec: 01/26/21 15:07 [facility] [id number]) OT Gross Range of Motion Upper Extremity Range of Motion Assessment Within Functional Limits OT-Muscle Tone Assessment Muscle Tone WNL Yes M9 OT- IP Assessment and Plan Start: 01/26/21 14:47 Freq: Status: Active Protocol: Document 01/26/21 14:48 [facility] (Rec: 01/26/21 15:07 [facility] [id number]) OT Summary Assessment and Plan Potential Rehabilitation Potential Good Analytic Complexity at Evaluation Moderate Summary OT Impairments Pain,Balance,Functional Mobility,Dressing,Toileting, Bathing,Toilet Transfers, Shower Transfers,Activity Tolerance Progress Towards Goals Slow Progress due to Pain,Slow Progress due to Medical Issues Assessment Summary Pt MOD complexity and main barriers are steps, having decreased BP today after getting up, and now needing one person assist for needs. Pt has a supportive family to be able to assist and stay with her when medically when stable. Goals Grooming Goal Independent Dressing Goal Minimal Assistance Toileting Goal Independent Bathing Goal Standby Assistance Toilet Transfer Goal Independent Shower Transfer Goal Independent Patient/Caregiver Education Goal Demonstrate Post-Op Precautions Days to Meet Goals 5 Frequency of Treatment Frequency Of Treatment Once a Day Treatment Plan OT Treatment Plan ADL Training,Functional Cognition Training,Functional Mobility,Patient/Family Education,Discharge Planning Other Treatment Recommendations and Next shower Treatment Focus Discharge Recommendations OT Discharge Recommendations Home with 29/10 Assist Available Transportation Needs at Discharge Private Vehicle
--- NOTE | 2021-01-26 14:50 | PT.IPTN ---
Current Diagnoses Other forms of scoliosis, lumbar region (01/25/21) Spinal stenosis, lumbar region without neurogenic claudication (01/25/21) Arthrodesis status (01/25/21) Surgery Performed Operation Date: 01/25/21 08:45 Actual Procedures p L2-5 TLIF,L2-S1 PSF w/instrumentation L5-S1 lumbar HWR,exploration of fusion,repeat laminectomy,reinsertion of hardware(Not Applicable) - Bryce Evangelista MD Physical Therapy Treatment Note M2 PT-IP Current Condition Start: 01/26/21 13:39 Freq: NEEDED Status: Active Protocol: Document 01/26/21 10:15 AB (Rec: 01/26/21 13:50 AB [id number]) Physical Therapy Current Condition Current Condition Evaluation Date 01/26/21 Treatment Diagnosis s/p L3-4, L4-5, L5S1 TLIF; difficulty in walking Onset Date 01/25/21 M3 PT-IP Subjective Start: 01/26/21 13:39 Freq: NEEDED Status: Active Protocol: Document 01/26/21 14:32 KS (Rec: 01/26/21 15:21 KS [id number]) Subjective Physical Therapy Visit Type Type Treatment Note Visit Start Time 14:32 Visit Stop Time 14:50 Total Visit Minutes 18 Number of ACCOUNT ADMINISTRATOR Visits 1 Physical Therapy Visit Comments Patient Comments agreeable to do PT Therapy Pain Assessment Pain When Pain Assessed At Rest Pain Present Pain Present Pain Reported M4 PT-IP Mobility and Gait Start: 01/26/21 13:39 Freq: NEEDED Status: Active Protocol: Document 01/26/21 14:32 KS (Rec: 01/26/21 15:21 KS [id number]) PT-Bed Mobility Assessment Rolling Type of Rolling Log Rolling Level of Assist Minimal Assistance Sit to Supine Sit to Supine Minimal Assistance PT-Transfer Assessment Sit to and From Stand Sit to and from Stand Minimal Assistance,1 Person Assistance,Use of Upper Extremities Equipment Transfer Assistive Device Gait Belt,Front Wheeled Walker Orthotic/Prosthetic Devices or Brace: No Transfers Transfer Destination Bed Transfer Technique ambulated using FWW Transfer Ability Level of Assist Minimal Assistance,Use of Upper Extremities Comments Mobility Comments Pt in bed w/ OT in room upon arrival from therapy ad able to recall 3/3 precautions. Pt appeared fatigued, BP taken by OT 66/44 in reclined position , pt fully reclined and BP taken again after 2 min 82/40. Kept pt in reclined position and RN notified 3rd BP in full recline 82/50. Pt agreeable to transfer back to bed. Min A for sit<>stand w/ FWW. Pt then completed stand step pivot and 3x lateral steps towards HOB w/ CGA and cues. Min A for stand<>sit for controlled decscent. Min A for LE guidance for sit<> sidelying and Min A for sidelying<>sup. Pt then requested to turn back on her side and did logroll to L w/ Min A. Pt positioned comfortably w/ all needs in reach. Pts BP in sidelying following transfer 78/49. Gait Assessment Gait Gait Assistance Required: Contact Guard Assist,1 Person Assist Distance (Feet) 5 Able to Maintain Weight Bearing Status Yes During Gait Assistive Devices Assistive Device Gait Belt,Front Wheeled Walker Orthotic/Prosthetic Devices or Brace: No Factors Limiting Gait Function Factors Limiting Gait Function Decreased Activity Tolerance, Decreased Strength,Difficulty Following Directions,Limited Range of Motion,Pain,Poor Balance,Poor Safety Awareness Comments Gait Comments Stand step pivot followed by 3 lateral steps leading w/ LLE. PT-Balance Assessment Sitting Balance and Reactions Static Sitting Balance Ability Good Dynamic Sitting Balance Ability Fair Standing Balance and Reactions Static Standing Balance Ability Fair Dynamic Standing Balance Ability Fair Device Used FWW M5 PT-IP Objective Assessments Start: 01/26/21 13:39 Freq: NEEDED Status: Active Protocol: Document 01/26/21 10:15 AB (Rec: 01/26/21 13:50 AB [id number]) Orientation Orientation/Cognition Level of Alertness Alert Orientation Name,Place,Situation Language Function Ability No Deficits Noted Safety Awareness Decreased Safety Awareness Memory Description Short Term Impaired Gross Range of Motion Lower Extremity ROM Assessment Within Functional Limits Strength Lower Extremity Strength Assessment Bilaterally Impaired Hip 4-/5 Knee 4-/5 Coordination Assessment Gross Coordination Gross Coordination WNL Sensation Assessment Sensation Gross Sensation WNL Muscle Tone Muscle Tone WNL Yes M6 PT-IP Treatment Start: 01/26/21 13:39 Freq: NEEDED Status: Active Protocol: Document 01/26/21 14:32 KS (Rec: 01/26/21 15:21 KS [id number]) Physical Therapy Treatment Education Education Provided Precautions,Weight Bearing Status,Post-Op Packet,Safety M7 PT-IP Assessment and Plan Start: 01/26/21 13:39 Freq: NEEDED Status: Active Protocol: Document 01/26/21 14:32 KS (Rec: 01/26/21 15:21 KS [id number]) PT Summary Assessment and Plan Potential Rehabilitation Potential Good Status of Condition at Evaluation Evolving Summary Impairments Pain,ROM,Strength,Balance, Coordination,Sensation,Tone, Cognition,Bed Mobility, Transfers,Gait,Activity Tolerance Assessment Summary Pt limited due to low BP today . Able to complete sit<>stand Min A, stand step pivot and lateral steps CGA, stand<>sit and sit<>sidelying Min A and cues, and logroll Min A. BP consistently low, RN present and aware. D/c plan dependingon progress. Will continue to progress gait, stairs, and perform caregiver training when appropriate for pt. Goals Bed Mobility Goal Standby Assistance Transfer Goal Standby Assistance,Front Wheeled Walker Gait Goal Standby Assistance,Front Wheel Walker Gait Distance 100 Other Goals improve bed mobility mod I improve ambulation using FWW 200 ft SBA up/down 2 steps R rail SBA Days to Meet Goals 5 Frequency of Treatment Frequency Of Treatment Twice a Day Treatment Plan Physical Therapy Treatment Plan Bed Mobility Training,Transfer Training,Gait Training, Therapeutic Exercise,Balance Retraining,Post Op Education, Discharge Planning,Hot or Cold Pack,Neuromuscular Re-ed, Coordination Retraining,Manual Therapy Precautions Lumbar Precautions Log Roll,No Twisting,Limit Bending,Lifting Restriction of 10 lbs,Gait Belt above Incisional Area Recommendations To Nursing Amount of Assist Needed 1 Person Assist Discharge Recommendations PT Discharge Recommendations Home with 29/10 Assist Available,Home Health
--- NOTE | 2021-01-26 15:07 | PC.NURSE ---
Notified by OT that patient became pale and blood pressure dropped while sitting up in chair. Patient remained alert and awake throughout, states she did not feel any dizziness or other complaint other than some back discomfort. PT and this RN assisted patient back to bed, BP 82/45 and patient denies symptoms. Danisha MONTIEL notified, added hold parameters to blood pressure medication. Plan to continue to monitor at this time.
[2021-01-26] MEDS: LATANOPROST 0.005% OPHTH 2.5 ML 1 DROPS EYE-BOTH (20:37)
[2021-01-26] MEDS: SENNOSIDES 8.6 MG TABLET 17.2 MG PO (20:38)
[2021-01-26] MEDS: ATORVASTATIN 20 MG TABLET PO (20:38)
[2021-01-27] VITALS (11 sets, daily range): BP systolic 88–131; BP diastolic 45–68; PULSE 67–83; RESP 14–19; TEMP 36.3–36.6; O2SAT 92–100
[2021-01-27] MEDS: hydrOXYzine pamoate 25 MG CAPSULE PO ×3 (00:18→20:38)
[2021-01-27] MEDS: ACETAMINOPHEN 325 MG TABLET 650 MG PO ×3 (00:18→16:41)
[2021-01-27] MEDS: OXYCODONE IR 5 MG TABLET 10 MG PO ×4 (00:18→20:39)
[2021-01-27] MEDS: SODIUM CHLORIDE 0.9% 500 ML 1000 ML IV (05:45)
[2021-01-27 06:32] LABS: Hematocrit 27.3 % (36-46); Hemoglobin 8.9 g/dL (12.0-16.0)
--- NOTE | 2021-01-27 07:26 | PC.NURSE ---
Pt's BP was measured at 0500 to be 95/51. Urine output low, approx 275 in quijano cath bag. Patient asymptomatic. Provider informed, ordered 500 cc bolus NS and H&H draw. Post bolus, Pt's BP measured at 98/51 and an additional 100 mL was in quijano cath. Will continue to monitor.
--- NOTE | 2021-01-27 09:27 | P.PN_ITS ---
Subjective Subjective Date Patient Seen: 01/27/21 Time Patient Seen: 09:35 Interval history: Patient is complaining of moderate to severe low back pain today. Her pain is currently not well controlled. We had discussed adding a long-acting oxycodone yesterday, but orders were not entered. She is working with physical therapy but progressing slowly due to her pain. Denies any nausea or vomiting. No fevers chills or night sweats. Her baseline lower extremity numbness has somewhat improved but she is still complaining of decreased sensation in her bilateral toes. Exam Vital Signs (past 8 hours): - 01/27/21 04:21 01/27/21 05:00 01/27/21 06:49 Temperature 97.8 F Pulse Rate 73 Respiratory Rate 18 Blood Pressure 88/50 L 95/51 L 96/45 L Pulse Oximetry 96 01/27/21 06:55 01/27/21 08:10 Temperature 97.9 F Pulse Rate 67 Respiratory Rate 16 Blood Pressure 98/51 L 102/53 L Pulse Oximetry 97 Oxygen Delivery Method Room Air,CPAP Oxygen Flow Rate 0 Narrative Exam Narrative: Pleasant 70-year-old female, resting in bed, mild distress. She has decreased sensation on the right as compared to her left in the lateral aspect of her ankle. The medial aspect of her ankles have the same sensation but is overall decreased. Bilateral lower extremity motor function is grossly intact. Sensation is grossly intact to light touch in bilateral lower ex tremities. Bilateral calves are soft, nontender palpation. Dressing is clean, dry, intact. No surrounding erythema or induration. Objective Labs Result Diagrams: 01/27/21 06:11 Labs: Laboratory Results - last 24 hr 01/27/21 06:11 Hgb 8.9 L Hct 27.3 L PFSH Medical History Arthritis Breast cancer, left (2012) COPD (chronic obstructive pulmonary disease) Easy bruisability History of revision of total replacement of right knee joint (2009) HLD (hyperlipidemia) HTN (hypertension) Hx of Crohn's disease (1993) Lymphedema KIMMY on CPAP Osteoarthritis Panic attacks Right femoral fracture (2012) Sepsis (2016) Surgical History History of hysterectomy (1993) History of lumbar fusion (09/20/16) History of lumpectomy of left breast (2012) History of right knee joint replacement (2008) Hx of appendectomy Hx of bladder repair surgery Hx of tonsillectomy Social History household members: none Smoking Status: Former smoker alcohol intake: current Assessment & Plan Post-op Postoperative Procedures: Procedures Operation Date: 01/25/21 08:45 Actual Procedure Side Surgeon p L2-5 TLIF,L2-S1 PSF w/instrumentation L5-S1 lumbar HWR,exploration of fusion,repeat laminectomy,reinsertion of hardware Not Applicable Bryce Evangelista MD Postoperative day: 2 Postoperative status: marginal pain control Postoperative status narrative: Stable status post L2-5 TLIF, L2-S1 PSF with instrumentation, L5-S1 lumbar hardware removal, and reinsertion of hardware Postoperative plan narrative: We will increase her pain medications and add on a long-acting Oxy every 12 hours for better pain control. Mobilize with PT. Limit bending, lifting, twisting. Weightbearing as tolerated with front wheel walker Likely discharge home tomorrow, if cleared by PT and pain is better controlled. Quality VTE Deep Vein Thrombosis/Pulmonary Embolism Present on Admission: No
[2021-01-27] MEDS: PANTOPRAZOLE DR 40 MG TABLET PO (09:32)
[2021-01-27] MEDS: DOCUSATE 100 MG CAPSULE PO ×2 (09:32→20:38)
[2021-01-27] MEDS: GABAPENTIN 600 MG TABLET PO ×3 (09:32→20:38)
[2021-01-27] MEDS: VENLAFAXINE ER 75 MG CAP PO (09:37)
[2021-01-27] MEDS: sulfaSALAzine 500 MG TABLET 1000 MG PO ×2 (09:37→20:37)
[2021-01-27] MEDS: OXYBUTYNIN 5 MG ER TAB 10 MG PO (09:38)
[2021-01-27] MEDS: FOLIC ACID 0.4 MG TABLET PO (10:38)
[2021-01-27] MEDS: LETROZOLE 2.5 MG TABLET PO (10:38)
--- NOTE | 2021-01-27 10:53 | PT.IPTN ---
Current Diagnoses Other forms of scoliosis, lumbar region (01/25/21) Spinal stenosis, lumbar region without neurogenic claudication (01/25/21) Arthrodesis status (01/25/21) Surgery Performed Operation Date: 01/25/21 08:45 Actual Procedures p L2-5 TLIF,L2-S1 PSF w/instrumentation L5-S1 lumbar HWR,exploration of fusion,repeat laminectomy,reinsertion of hardware(Not Applicable) - Bryce Evangelista MD Physical Therapy Treatment Note M2 PT-IP Current Condition Start: 01/26/21 13:39 Freq: NEEDED Status: Active Protocol: Document 01/26/21 10:15 AB (Rec: 01/26/21 13:50 AB [email or web address]) Physical Therapy Current Condition Current Condition Evaluation Date 01/26/21 Treatment Diagnosis s/p L3-4, L4-5, L5S1 TLIF; difficulty in walking Onset Date 01/25/21 M3 PT-IP Subjective Start: 01/26/21 13:39 Freq: NEEDED Status: Active Protocol: Document 01/27/21 10:20 KS (Rec: 01/27/21 12:15 KS [id number]) Subjective Physical Therapy Visit Type Type Treatment Note Visit Start Time 10:20 Visit Stop Time 10:53 Total Visit Minutes 33 Number of POT PRESS OPERATOR Visits 2 Physical Therapy Visit Comments Patient Comments agreeable to do PT Therapy Pain Assessment Pain When Pain Assessed At Rest Pain Present Pain Present Pain Reported M4 PT-IP Mobility and Gait Start: 01/26/21 13:39 Freq: NEEDED Status: Active Protocol: Document 01/27/21 10:20 KS (Rec: 01/27/21 12:15 KS [id number]) PT-Bed Mobility Assessment Rolling Type of Rolling Log Rolling Level of Assist Minimal Assistance Supine to Sit Supine to Sit Minimal Assistance,1 Person Assistance Sit to Supine Sit to Supine Minimal Assistance PT-Transfer Assessment Sit to and From Stand Sit to and from Stand Minimal Assistance,1 Person Assistance,Use of Upper Extremities Equipment Transfer Assistive Device Gait Belt,Front Wheeled Walker Orthotic/Prosthetic Devices or Brace: No Transfers Transfer Destination Bed Transfer Technique ambulated using FWW Transfer Ability Level of Assist Minimal Assistance,Use of Upper Extremities Comments Mobility Comments Pt in bed upon arrival from therapy. BP 104/51 in supine. Pt able to recall 3/3 spinal precautions. Logroll to L Min A, sidelying<>sit Min A. Pt able to maintain upright seated position, BP: 109/64. Pt then sit<>stand w/ FWW and Min A w/ cues for hand placement. Pts BP standin /68. Pt then completed [address]. She then ambulated ~40 ft around room w/ FWW and CGA. Pt c/o increased pain and requested to go back to bed. Pt Min A for stand<>sit and cues for slow descent. Min A for sit<> sidelying for LE assistance, CGA for logroll to supine. Pt left in bed w/ TANK CAR INSPECTOR in room and all needs in reach. Gait Assessment Gait Gait Assistance Required: Contact Guard Assist Distance (Feet) 40 Able to Maintain Weight Bearing Status Yes During Gait Assistive Devices Assistive Device Gait Belt,Front Wheeled Walker Orthotic/Prosthetic Devices or Brace: No Factors Limiting Gait Function Factors Limiting Gait Function Decreased Activity Tolerance, Decreased Strength,Difficulty Following Directions,Limited Range of Motion,Pain,Poor Balance,Poor Safety Awareness Comments Gait Comments Pt able to tolerate ~40 ft ambulation today w/ FWW and CGA. Pt ambulated slowly and cautiously w/ FWW demonstrating decreased stride and foot clearance d/t pain and weakness. Stair Climbing Assessment Comments Stair Climbing Comments Not assessed, pt will need to complete stair training prior to d/c PT-Balance Assessment Sitting Balance and Reactions Static Sitting Balance Ability Good Dynamic Sitting Balance Ability Fair Standing Balance and Reactions Static Standing Balance Ability Fair Dynamic Standing Balance Ability Fair Device Used FWW M5 PT-IP Objective Assessments Start: 01/26/21 13:39 Freq: NEEDED Status: Active Protocol: Document 01/26/21 10:15 AB (Rec: 01/26/21 13:50 AB [id number]) Orientation Orientation/Cognition Level of Alertness Alert Orientation Name,Place,Situation Language Function Ability No Deficits Noted Safety Awareness Decreased Safety Awareness Memory Description Short Term Impaired Gross Range of Motion Lower Extremity ROM Assessment Within Functional Limits Strength Lower Extremity Strength Assessment Bilaterally Impaired Hip 4-/5 Knee 4-/5 Coordination Assessment Gross Coordination Gross Coordination WNL Sensation Assessment Sensation Gross Sensation WNL Muscle Tone Muscle Tone WNL Yes M6 PT-IP Treatment Start: 01/26/21 13:39 Freq: NEEDED Status: Active Protocol: Document 01/27/21 10:20 KS (Rec: 01/27/21 12:15 KS [id number]) Physical Therapy Treatment Education Education Provided Precautions,Weight Bearing Status,Post-Op Packet,Safety M7 PT-IP Assessment and Plan Start: 01/26/21 13:39 Freq: NEEDED Status: Active Protocol: Document 01/27/21 10:20 KS (Rec: 01/27/21 12:15 KS [id number]) PT Summary Assessment and Plan Potential Rehabilitation Potential Good Status of Condition at Evaluation Evolving Summary Impairments Pain,ROM,Strength,Balance, Coordination,Sensation,Tone, Cognition,Bed Mobility, Transfers,Gait,Activity Tolerance Progress Towards Goals Progressing Toward Goals Assessment Summary Pt able to participate more w/ therapy today w/ stable BP. Still requiring Min A for bed mobility and sit<>stand. Pt ambulated ~40 ft w/ FWW CGA. Decreased stride length and foot clerance during ambulation d/t pain. Anticipate d/c home with assistance, caregiver training scheduled for 10:30 AM tomorrow. Pt will also need to complete stair training. Goals Bed Mobility Goal Standby Assistance Transfer Goal Standby Assistance,Front Wheeled Walker Gait Goal Standby Assistance,Front Wheel Walker Gait Distance 100 Other Goals improve bed mobility mod I improve ambulation using FWW 200 ft SBA up/down 2 steps R rail SBA Days to Meet Goals 5 Frequency of Treatment Frequency Of Treatment Twice a Day Treatment Plan Physical Therapy Treatment Plan Bed Mobility Training,Transfer Training,Gait Training, Therapeutic Exercise,Balance Retraining,Post Op Education, Discharge Planning,Hot or Cold Pack,Neuromuscular Re-ed, Coordination Retraining,Manual Therapy Precautions Lumbar Precautions Log Roll,No Twisting,Limit Bending,Lifting Restriction of 10 lbs,Gait Belt above Incisional Area Recommendations To Nursing Amount of Assist Needed 1 Person Assist Discharge Recommendations PT Discharge Recommendations Home with 29/10 Assist Available,Home Health
--- NOTE | 2021-01-27 11:07 | PC.NURSE ---
Patient given 5mg of oral oxycodone, she will be starting on long acting oxycontin shortly for pain issues. Dressing to back is cdi, Patient up with 1 person assist and walker. CMS wnl and ppx2.
--- NOTE | 2021-01-27 11:41 | CM.DPC ---
Addendum entered by Cynthia Vera R.N. 01/27/21 14:52: Spoke to Willa at [facility]. She confirmed that they can accept patient when she is ready for discharge. Let her know that this town planner will fax over the DC Summary and orders upon discharge, which may occur tomorrow. Addendum entered by Cynthia Vera R.N. 01/27/21 12:06: Spoke to Miguelina at [facility]. Confirmed that they do go to [place]. Will go ahead and fax her over the referral. Will include P.T, O.T, and bath aide. Original Note: DCP Cont: Met with patient today. Introduced self and role. Patient was laying in bed, alert and oriented. Confirmed with her that she wants to go home, and home health would be ok. She resides in [place] alone, but she indicated that she has a friend that is a physical therapist that can stay with her at discharge. Asked her if she had a preference upon home health agencies, and she indicated, she doesn't have any preferences, she has never had home health before. Checked on calendar for this week, and [facility] is listed. They do go to [place]. Will go ahead and fax referral over to [facility]. Cynthia Vera RN/Construction Plumber
[2021-01-27] MEDS: OXYCODONE ER 10 MG TAB PO ×2 (12:58→20:38)
--- NOTE | 2021-01-27 13:20 | PT.IPTN ---
Current Diagnoses Other forms of scoliosis, lumbar region (01/25/21) Spinal stenosis, lumbar region without neurogenic claudication (01/25/21) Arthrodesis status (01/25/21) Surgery Performed Operation Date: 01/25/21 08:45 Actual Procedures p L2-5 TLIF,L2-S1 PSF w/instrumentation L5-S1 lumbar HWR,exploration of fusion,repeat laminectomy,reinsertion of hardware(Not Applicable) - Bryce Evangelista MD Physical Therapy Treatment Note M2 PT-IP Current Condition Start: 01/26/21 13:39 Freq: NEEDED Status: Active Protocol: Document 01/26/21 10:15 AB (Rec: 01/26/21 13:50 AB [id number]) Physical Therapy Current Condition Current Condition Evaluation Date 01/26/21 Treatment Diagnosis s/p L3-4, L4-5, L5S1 TLIF; difficulty in walking Onset Date 01/25/21 M3 PT-IP Subjective Start: 01/26/21 13:39 Freq: NEEDED Status: Active Protocol: Document 01/27/21 13:08 KS (Rec: 01/27/21 14:09 KS [id number]) Subjective Physical Therapy Visit Type Type Treatment Note Visit Start Time 13:08 Visit Stop Time 13:20 Total Visit Minutes 12 Number of PERFORMANCE INSTRUCTOR Visits 3 Physical Therapy Visit Comments Patient Comments agreeable to do PT, OT in room M4 PT-IP Mobility and Gait Start: 01/26/21 13:39 Freq: NEEDED Status: Active Protocol: Document 01/27/21 13:08 KS (Rec: 01/27/21 14:09 KS [id number]) PT-Transfer Assessment Sit to and From Stand Sit to and from Stand Contact Guard Assistance,1 Person Assistance,Use of Upper Extremities Equipment Transfer Assistive Device Gait Belt,Front Wheeled Walker Orthotic/Prosthetic Devices or Brace: No Transfers Transfer Technique ambulated using FWW Transfer Ability Level of Assist Contact Guard Assistance, Minimal Assistance,Use of Upper Extremities Comments Mobility Comments Pt sitting EOB w/ OT upon arrival from therapy. Pt CGA to Min A for sit<>stand w/ FWW w/ cues for hand placement. Pt then mabulated ~80ft in hallway w/ FWW and CGA w/ cues for heel toe walking. Pt reports frequent falls and states she feels like she has to look at the floor. Pt improved gait w/ cues, but continues to have decreased foot clearance. Pt returned to room and left standing w/ OT in preparation for shower. Gait Assessment Gait Gait Assistance Required: Contact Guard Assist Distance (Feet) 80 Able to Maintain Weight Bearing Status Yes During Gait Assistive Devices Assistive Device Gait Belt,Front Wheeled Walker Orthotic/Prosthetic Devices or Brace: No Factors Limiting Gait Function Factors Limiting Gait Function Decreased Activity Tolerance, Decreased Strength,Difficulty Following Directions,Limited Range of Motion,Pain,Poor Balance,Poor Safety Awareness Comments Gait Comments Pt showed increased tolerance for activity and was able to ambulate ~80 ft w/ FWW CGA. Pt required cues for heel toe walking and increased foot clearance. Pt states she has Fww at home for use. Stair Climbing Assessment Comments Stair Climbing Comments Not assessed, pt will need to complete stair training prior to d/c. Caregiver training scheduled for 10:30 AM tomorrow . PT-Balance Assessment Sitting Balance and Reactions Static Sitting Balance Ability Good Dynamic Sitting Balance Ability Fair Standing Balance and Reactions Static Standing Balance Ability Fair Dynamic Standing Balance Ability Fair Device Used FWW M5 PT-IP Objective Assessments Start: 01/26/21 13:39 Freq: NEEDED Status: Active Protocol: Document 01/26/21 10:15 AB (Rec: 01/26/21 13:50 AB [id number]) Orientation Orientation/Cognition Level of Alertness Alert Orientation Name,Place,Situation Language Function Ability No Deficits Noted Safety Awareness Decreased Safety Awareness Memory Description Short Term Impaired Gross Range of Motion Lower Extremity ROM Assessment Within Functional Limits Strength Lower Extremity Strength Assessment Bilaterally Impaired Hip 4-/5 Knee 4-/5 Coordination Assessment Gross Coordination Gross Coordination WNL Sensation Assessment Sensation Gross Sensation WNL Muscle Tone Muscle Tone WNL Yes M6 PT-IP Treatment Start: 01/26/21 13:39 Freq: NEEDED Status: Active Protocol: Document 01/27/21 13:08 KS (Rec: 01/27/21 14:09 KS [id number]) Physical Therapy Treatment Education Education Provided Precautions,Weight Bearing Status,Post-Op Packet,Safety M7 PT-IP Assessment and Plan Start: 01/26/21 13:39 Freq: NEEDED Status: Active Protocol: Document 01/27/21 13:08 KS (Rec: 01/27/21 14:09 KS [id number]) PT Summary Assessment and Plan Potential Rehabilitation Potential Good Status of Condition at Evaluation Evolving Summary Impairments Pain,ROM,Strength,Balance, Coordination,Sensation,Tone, Cognition,Bed Mobility, Transfers,Gait,Activity Tolerance Progress Towards Goals Progressing Toward Goals Assessment Summary Pt showed increased tolerance for ambulation and ambulated ~ [address] in hallway w/ FWW and CGA. Pt CGA for Min A for sit< >stand and still requiring cues for hand placement. Pt will participate in caregiver and stair training at 10:30 AM tomorrow, anticipate d/c home following caregiver training. Goals Bed Mobility Goal Standby Assistance Transfer Goal Standby Assistance,Front Wheeled Walker Gait Goal Standby Assistance,Front Wheel Walker Gait Distance 100 Other Goals improve bed mobility mod I improve ambulation using FWW 200 ft SBA up/down 2 steps R rail SBA Days to Meet Goals 5 Frequency of Treatment Frequency Of Treatment Twice a Day Treatment Plan Physical Therapy Treatment Plan Bed Mobility Training,Transfer Training,Gait Training, Therapeutic Exercise,Balance Retraining,Post Op Education, Discharge Planning,Hot or Cold Pack,Neuromuscular Re-ed, Coordination Retraining,Manual Therapy Precautions Lumbar Precautions Log Roll,No Twisting,Limit Bending,Lifting Restriction of 10 lbs,Gait Belt above Incisional Area Recommendations To Nursing Amount of Assist Needed 1 Person Assist Discharge Recommendations PT Discharge Recommendations Home with 29/10 Assist Available,Home Health
--- NOTE | 2021-01-27 13:40 | OT.IP.TRT ---
Current Diagnoses Other forms of scoliosis, lumbar region (01/25/21) Spinal stenosis, lumbar region without neurogenic claudication (01/25/21) Arthrodesis status (01/25/21) Surgery Performed Operation Date: 01/25/21 08:45 Actual Procedures p L2-5 TLIF,L2-S1 PSF w/instrumentation L5-S1 lumbar HWR,exploration of fusion,repeat laminectomy,reinsertion of hardware(Not Applicable) - Bryce Evangelista MD Occupational Therapy Treatment Note M2 OT-IP Current Condition Start: 01/26/21 14:47 Freq: Status: Active Protocol: Document 01/26/21 14:48 [facility] (Rec: 01/26/21 15:07 [facility] [id number]) Occupational Therapy Current Condition Current Condition Evaluation Date 01/26/21 Treatment Diagnosis S/P L3-S1 TLIF, decreased mobility Post Operative Precautions Lumbar Precautions Log Roll,No Twisting,Limit Bending,Lifting Restriction of 10 lbs,Gait Belt above Incisional Area M3 OT- IP Subjective and Pain Start: 01/26/21 14:47 Freq: Status: Active Protocol: Document 01/27/21 14:04 [facility] (Rec: 01/27/21 14:13 [facility] [id number]) OT- Subjective Occupational Therapy Visit Type Type Treatment Note Visit Start Time 12:53 Visit Stop Time 13:40 Total Visit Minutes 47 Occupational Therapy Visit Comments Patient Comments Pt agreed to shower. PROTEIN CHEMIST working with pt just prior to shower. Patient/Caregiver Goals To go home. OT Pain Assessment Pain When Pain Assessed During Mobility Pain Present Pain Present Pain Reported Location Lower Back Intensity 5 Scale Used Numeric (0 - 10) M4 OT- IP ADL's Start: 01/26/21 14:47 Freq: Status: Active Protocol: Document 01/27/21 14:04 [facility] (Rec: 01/27/21 14:13 [facility] [id number]) OT JAI-Slst-Qkodymp General Evaluation Self-Feeding Ability Independent OT ADL-Grooming Comments OT Grooming Comments Not performed. OT ADL-Oral Care Comments Oral Care Comments NOt performed. OT ADL-Dressing General Eval Lower Body Dressing Ability Maximum Assistance Comments OT Dressing Comments Assist to take off her socks and po the brief over her feet. OT ADL-Toileting General Evaluation Toileting Ability Total Assistance Comments OT Toileting Comments Feliz still in place and just taken out right before showering. OT ADL-Bathing Bathing Type Bathing Type Shower General Evaluation Bathing Ability Moderate Assistance Areas Needing Assistance Wash/Dry Back,Wash/Dry Perineal Area,Wash/Dry Lower Extremities Comments OT Bathing Comments Nursing able to change out her dressing and made aware that she has a small skin opening from scratching her knee. Pt needing assist to wash/dry her back and feet. M5 OT- IP IADL's Start: 01/26/21 14:47 Freq: Status: Active Protocol: Document 01/26/21 14:48 [facility] (Rec: 01/26/21 15:07 [facility] [id number]) OT-Instrumental Activities of Daily Living Home Safety Awareness Awareness of Need for Assistance at Home Good Awareness Ability to Problem Solve Emergency Able to Problem Solve Situations Home Safety Comments Pt's family to assist and stay with her at home initially. M6 OT- IP Functional Cognition Start: 01/26/21 14:47 Freq: Status: Active Protocol: Document 01/27/21 14:04 [facility] (Rec: 01/27/21 14:13 [facility] [id number]) Cognitive Factors Limiting Selfcare Function Cognitive Ability Attention Span Ability Capable of Focused Attention, Capable of Sustained Attention Ability to Follow Commands Able to Follow One Step Commands Safety Awareness Decreased Recall of Precautions Cognitive Comments Cognitive Assessment Comments Pt still needing reminders to recall her back precautions and to be able to apply especially during bed mobility needs. Cues pt to keep her left arm in front of her when lying down into sidelying to help prevent her from twisting. M7 OT- IP Mobility and Balance Start: 01/26/21 14:47 Freq: Status: Active Protocol: Document 01/27/21 14:04 [facility] (Rec: 01/27/21 14:13 [facility] [id number]) OT- Bed Mobility Assessment Supine to Sit Supine to Sit Assist Contact Guard Assistance,1 Person Assistance Sit to Supine Sit to Supine Assist Minimal Assistance,1 Person Assistance OT-Transfer Assessment Sit to and From Stand Sit to and from Stand Contact Guard Assistance Transfers Transfer Ability Contact Guard Assistance, Minimal Assistance,1 Person Assistance Technique Transfer Destination Bed,Chair,Toilet Transfer Technique Stand Step Pivot Devices Transfer Assistive Devices Gait Belt,Front Wheeled Walker Comments Mobility Comments ELOY when stepping over the threshold of the shower with FWW. BP today with no issues. OT- Gait Assessment Comments Gait Ability Comments CGA with FWW. OT- Balance Assessment Sitting Balance and Reactions Static Sitting Balance Ability Good Dynamic Sitting Balance Ability Good Standing Balance and Reactions Static Standing Balance Ability Fair Dynamic Standing Balance Ability Fair M8 OT- IP Objective Assessments Start: 01/26/21 14:47 Freq: Status: Active Protocol: Document 01/26/21 14:48 [facility] (Rec: 01/26/21 15:07 [facility] [id number]) OT Gross Range of Motion Upper Extremity Range of Motion Assessment Within Functional Limits OT-Muscle Tone Assessment Muscle Tone WNL Yes M9 OT- IP Assessment and Plan Start: 01/26/21 14:47 Freq: Status: Active Protocol: Document 01/27/21 14:04 [facility] (Rec: 01/27/21 14:13 [facility] [id number]) OT Summary Assessment and Plan Potential Rehabilitation Potential Good Analytic Complexity at Evaluation Moderate Summary OT Impairments Pain,Balance,Functional Mobility,Dressing,Toileting, Bathing,Toilet Transfers, Shower Transfers,Activity Tolerance Progress Towards Goals Progressing Toward Goals Assessment Summary Pt able to tolerate showering today and no issues with BP today. Pt looking to go home with assist tomorrow when medically stable. Goals Grooming Goal Independent Dressing Goal Minimal Assistance Toileting Goal Independent Bathing Goal Standby Assistance Toilet Transfer Goal Independent Shower Transfer Goal Independent Patient/Caregiver Education Goal Demonstrate Post-Op Precautions Days to Meet Goals 4 Frequency of Treatment Frequency Of Treatment Once a Day Treatment Plan OT Treatment Plan ADL Training,Functional Cognition Training,Functional Mobility,Patient/Family Education,Discharge Planning Discharge Recommendations OT Discharge Recommendations Home with 29/10 Assist Available Transportation Needs at Discharge Private Vehicle
--- NOTE | 2021-01-27 16:47 | PC.NURSE ---
Addendum entered by Kira Schmidt R.N. 01/27/21 21:56: Medicated for pain as per emar. BL calf scd's in place. CPAP in place for sleep. Addendum entered by Kira Schmidt R.N. 01/27/21 20:42: Pt assisted out of bed by PRODUCTION SUPERVISOR TRAINEE to attempt to void. Unsuccessful in attempt to void. Back into bed and bladder scanned for 176 cc/s. Oral fluids encouraged and provided. Original Note: Pt awake, alert resting quietly in bed. Able to turn self independently in bed for assessment. Observes log rolling technique. Pt was medicated for pain as per emar. I.S. teaching done and pt able to perform to 1200. Ice to back, BL foot pumps replaced with explanation for use. Call light available. Pt denies urge to void. Taking oral fluids well.
--- NOTE | 2021-01-27 19:18 | PC.NURSE ---
1650- Patient is alert and oriented. She reports a 6.5/10 pain and was medicated per MD order. Ice was also offered and applied to her lower back. She denied any nausea. The Feliz was removed on day shift and she still has not yet voided. She reported 3 falls within the last 3 months so fall precautions and education was initiated. Bed alarm is on and call light is within reach.
--- NOTE | 2021-01-27 20:15 | PC.NURSE ---
This student nurse was assisting the patient to a sitting position when I noticed her scratching the outer left aspect of her leg. Two different areas of skin were open. One was dime sized and the other was the size of an eraser tip. She reported these were due to her itching. A bandage and allevyn were applied.
[2021-01-27] MEDS: SODIUM CHLORIDE 0.9% FLUSH 10 ML IV (20:32)
[2021-01-27] MEDS: SENNOSIDES 8.6 MG TABLET 17.2 MG PO (20:38)
[2021-01-27] MEDS: ATORVASTATIN 20 MG TABLET PO (20:39)
[2021-01-27] MEDS: LATANOPROST 0.005% OPHTH 2.5 ML 1 DROPS EYE-BOTH (20:50)
[2021-01-28 01:00] VITALS: BP 128/57; PULSE 69; RESP 14; TEMP 36.4; O2SAT 94
[2021-01-28] MEDS: OXYCODONE IR 5 MG TABLET 10 MG PO ×2 (01:23→07:40)
[2021-01-28 03:15] VITALS: BP 142/75; PULSE 65; RESP 14; TEMP 36.7; O2SAT 96
[2021-01-28 07:30] VITALS: BP 142/72; PULSE 80; RESP 16; TEMP 36.8; O2SAT 95
[2021-01-28] MEDS: ACETAMINOPHEN 325 MG TABLET 650 MG PO (07:38)
[2021-01-28] MEDS: hydrOXYzine pamoate 25 MG CAPSULE PO (07:38)
[2021-01-28] MEDS: FUROSEMIDE 20 MG TABLET PO (08:36)
[2021-01-28] MEDS: GABAPENTIN 600 MG TABLET PO (08:37)
[2021-01-28] MEDS: OXYBUTYNIN 5 MG ER TAB 10 MG PO (08:37)
[2021-01-28] MEDS: DOCUSATE 100 MG CAPSULE PO (08:37)
[2021-01-28] MEDS: OXYCODONE ER 10 MG TAB PO (08:37)
[2021-01-28] MEDS: PANTOPRAZOLE DR 40 MG TABLET PO (08:37)
[2021-01-28 08:38] VITALS: BP 142/80; PULSE 72
[2021-01-28] MEDS: lisinopriL 10 MG TABLET PO (08:38)
[2021-01-28] MEDS: FOLIC ACID 0.4 MG TABLET PO (08:39)
[2021-01-28] MEDS: sulfaSALAzine 500 MG TABLET 1000 MG PO (08:39)
[2021-01-28] MEDS: LETROZOLE 2.5 MG TABLET PO (08:39)
[2021-01-28] MEDS: VENLAFAXINE ER 75 MG CAP PO (08:40)
--- NOTE | 2021-01-28 09:17 | OT.IP.TRT ---
Current Diagnoses Other forms of scoliosis, lumbar region (01/25/21) Spinal stenosis, lumbar region without neurogenic claudication (01/25/21) Arthrodesis status (01/25/21) Surgery Performed Operation Date: 01/25/21 08:45 Actual Procedures p L2-5 TLIF,L2-S1 PSF w/instrumentation L5-S1 lumbar HWR,exploration of fusion,repeat laminectomy,reinsertion of hardware(Not Applicable) - Bryce Evangelista MD Occupational Therapy Treatment Note M2 OT-IP Current Condition Start: 01/26/21 14:47 Freq: Status: Discharge Protocol: Document 01/26/21 14:48 [facility] (Rec: 01/26/21 15:07 [facility] [id number]) Occupational Therapy Current Condition Current Condition Evaluation Date 01/26/21 Treatment Diagnosis S/P L3-S1 TLIF, decreased mobility Post Operative Precautions Lumbar Precautions Log Roll,No Twisting,Limit Bending,Lifting Restriction of 10 lbs,Gait Belt above Incisional Area M3 OT- IP Subjective and Pain Start: 01/26/21 14:47 Freq: Status: Discharge Protocol: Document 01/28/21 08:30 [facility] (Rec: 01/28/21 12:11 [facility] [id number]) OT- Subjective Occupational Therapy Visit Type Type Treatment Note Visit Start Time 08:30 Visit Stop Time 09:17 Total Visit Minutes 47 Occupational Therapy Visit Comments Patient Comments Pt agreed to get dressed prior to going home. Patient/Caregiver Goals To go home. OT Pain Assessment Pain When Pain Assessed At Rest Pain Present Pain Present Pain Reported Location R hip Intensity 6 Scale Used Numeric (0 - 10) M4 OT- IP ADL's Start: 01/26/21 14:47 Freq: Status: Discharge Protocol: Document 01/28/21 08:30 [facility] (Rec: 01/28/21 12:11 [facility] [id number]) OT GIH-Eksy-Fjwahhv General Evaluation Self-Feeding Ability Independent OT ADL-Grooming General Evaluation Grooming Ability Independent Comments OT Grooming Comments Pt able to stand with her FWW to do her grooming needs on her own. OT ADL-Oral Care General Eval Oral Care Ability Independent Comments Oral Care Comments Pt able to spit into a cup while brushing her teeth and has good safety for back precautions. OT ADL-Dressing General Eval Lower Body Dressing Ability Minimal Assistance Areas Needing Assistance Shoes Comments OT Dressing Comments Pt able to use manufacturing leader and sock aid to assist with LB dressing needs with good safety. Able to issue sock aid to pt. Pt needing assist to get her foot into the shoe and tie them. Pt states will use slip on shoes at home. M5 OT- IP IADL's Start: 01/26/21 14:47 Freq: Status: Discharge Protocol: Document 01/26/21 14:48 [facility] (Rec: 01/26/21 15:07 [facility] [id number]) OT-Instrumental Activities of Daily Living Home Safety Awareness Awareness of Need for Assistance at Home Good Awareness Ability to Problem Solve Emergency Able to Problem Solve Situations Home Safety Comments Pt's family to assist and stay with her at home initially. M6 OT- IP Functional Cognition Start: 01/26/21 14:47 Freq: Status: Discharge Protocol: Document 01/28/21 08:30 [facility] (Rec: 01/28/21 12:11 [facility] [id number]) Cognitive Factors Limiting Selfcare Function Cognitive Comments Cognitive Assessment Comments Pt thinking better today and mainly just needing vc to have one hand push up from the bed when coming to stand for safety. M7 OT- IP Mobility and Balance Start: 01/26/21 14:47 Freq: Status: Discharge Protocol: Document 01/28/21 08:30 [facility] (Rec: 01/28/21 12:11 [facility] [id number]) OT- Bed Mobility Assessment Rolling Type of Rolling Roll to Right Supine to Sit Supine to Sit Assist Standby Assistance OT-Transfer Assessment Sit to and From Stand Sit to and from Stand Standby Assistance Transfers Transfer Ability Standby Assistance Technique Transfer Destination Bed,Chair Transfer Technique Stand Step Pivot Devices Transfer Assistive Devices Gait Belt,Front Wheeled Walker Comments Mobility Comments SBA with her mobility today. OT- Balance Assessment Sitting Balance and Reactions Static Sitting Balance Ability Good Dynamic Sitting Balance Ability Good Standing Balance and Reactions Static Standing Balance Ability Fair Dynamic Standing Balance Ability Fair M8 OT- IP Objective Assessments Start: 01/26/21 14:47 Freq: Status: Discharge Protocol: Document 01/26/21 14:48 [facility] (Rec: 01/26/21 15:07 [facility] [id number]) OT Gross Range of Motion Upper Extremity Range of Motion Assessment Within Functional Limits OT-Muscle Tone Assessment Muscle Tone WNL Yes M9 OT- IP Assessment and Plan Start: 01/26/21 14:47 Freq: Status: Discharge Protocol: Document 01/28/21 08:30 [facility] (Rec: 01/28/21 12:11 [facility] [id number]) OT Summary Assessment and Plan Potential Rehabilitation Potential Good Analytic Complexity at Evaluation Moderate Summary Progress Towards Goals Progressing Toward Goals Assessment Summary Pt has good understanding and safety for ADl and mobility needs. Pt able to follow back precautions as well. Able to touch base with her ride of OT needs. Pt to go home with assist. Goals Days to Meet Goals 3 Frequency of Treatment Frequency Of Treatment Once a Day Treatment Plan OT Treatment Plan ADL Training,Functional Cognition Training,Functional Mobility,Patient/Family Education,Discharge Planning Discharge Recommendations OT Discharge Recommendations Home with 29/10 Assist Available Transportation Needs at Discharge Private Vehicle
--- NOTE | 2021-01-28 09:40 | PM.DS.1 ---
History of Present Illness History of Present Illness Date Patient Seen: 01/28/21 Time Patient Seen: 09:40 Chief complaint: Low back pain s/p lumbar laminectomy Narrative: The patient is complaining of moderate low back pain this morning. The long-acting OxyContin tone is helping significantly. She is also complaining of right-sided hip bursitis, which is chronic. She is using ice as needed. Her baseline numbness is persisting, but not worsening. No nausea or vomiting. No fevers, chills, or night sweats. Overall she is feeling well and would like to be discharged home today with home health. Discharge Providers Provider Date of admission: 01/25/21 07:19 Discharge Date: 01/28/21 Primary care physician: Clive Barrientos MD Consults: 01/25/21 17:01 Consult to Occupational Therapy Evaluate & Treat Comment: Physician Instructions: Evaluate and treat Consult to Physical Therapy Evaluate & Treat Comment: Physician Instructions: Evaluate and Treat Discharge provider: Danisha Romano PA-C Summary Hospital Course Discharge Diagnosis: 1. Lumbar scoliosis 2. Hx of L5-S1 fusion with instrumentation 3. Lumbar spinal stenosis with neurogenic claudication 4. Lumbar spondylolisthesis Hospital Course: Procedure: 1. L3-4, L4-5 posterolateral and posterior interbody fusion 2. L3-4, L4-5 posterior interbody cage placement 3. L5-S1 posterior non-segmental instrumentation removal 4. L5-S1 revision laminectomy with exploration of fusion 5. L3-4, L4-5, L5-S1 posterior segmental instrumentation with pedicle screw placement 6. L5-S1 posterolatearl fusion 7. [place] of bone marrow from iliac crest through a separate incision 8. Utilization of microsurgical technique and operating microscope 9. Robotic assisted surgery with navigation Same procedure as scheduled: Yes Indications: Patient has been having chronic back pain and worsening lumbar radiculopathy. Patient had prior fusion surgery more than a year ago with progressively worsening back pain and bilateral lower extremity weakness numbness consistent with neurogenic claudication. Patient failed multiple conservative management with worsening pain weakness and numbness in her lower extremity.? Patient has been having difficulty performing activity of daily living.? After discussing risks benefits of treatment options, patient elected proceed with surgery. Surgeon: Bryce Evangelista Combine Driver: Danisha Romano Click Yes if Unassisted: No Anesthesia Type: General Operative Notes Closure Type: primary Specimen(s): none sent Prosthetic devices, grafts, tissues, transplants, or devices: Globus CREO MIS screws, Rise cages Applied: catheter Estimated Blood Loss (mL): 200 Blood products transfused: none The patient was admitted to the hospital for the above listed procedure for the above listed diagnosis. The patient consented to the procedure, and was taken back to the OR. Following the procedure, the patient has been in stable condition, and has been convalescing appropriately. The patient has successfully worked on mobilizing with physical therapy, and is avoiding bending, lifting, twisting. Their pain is well controlled with current pain regimen, and mechanical DVT prophylaxis has been implemented during their hospital stay. She had marginal pain control postop day 1 and 2. Throughout their time in the hospital, the patient has denied fevers, chills, night sweats, chest pain, shortness of breath, or urinary retention. The patient will be discharged in stable condition today to home with home health. Standard spine protocols: limit bending, lifting, twisting. Weight-bearing as tolerated with front-wheeled walker. Dressing should remain dry and in place until their follow up visit in the office in approximately 10-14 days (ok to change if it becomes wet, soiled, saturated). Status at Discharge Cognitive/behavioral status at discharge: oriented Functional status at discharge: uses cane/walker Overall status at discharge: patient is progressing back to baseline Exam Vital Signs (past 8 hours): - 01/28/21 03:15 01/28/21 07:30 01/28/21 08:38 Temperature 98.0 F 98.2 F Pulse Rate 65 80 72 Respiratory Rate 14 16 Blood Pressure 142/75 H 142/72 H 142/80 H Pulse Oximetry 96 95 Oxygen Delivery Method Room Air,CPAP Oxygen Flow Rate 0 Narrative Exam Narrative: Pleasant 70-year-old female, resting comfortably in her chair, no acute distress. Bilateral lower extremity motor functions are grossly intact. She is grossly intact to light touch in bilateral lower extremities. She has decreased sensation in her toes, which is baseline. Bilateral calves are soft, nontender to palpation. Dressing is clean, dry, intact. Objective Labs Result Diagrams: 01/27/21 06:11 [facility] Medical History Arthritis Breast cancer, left (2012) COPD (chronic obstructive pulmonary disease) Easy bruisability History of revision of total replacement of right knee joint (2009) HLD (hyperlipidemia) HTN (hypertension) Hx of Crohn's disease (1993) Lymphedema KIMMY on CPAP Osteoarthritis Panic attacks Right femoral fracture (2012) Sepsis (2016) Surgical History History of hysterectomy (1993) History of lumbar fusion (09/20/16) History of lumpectomy of left breast (2012) History of right knee joint replacement (2008) Hx of appendectomy Hx of bladder repair surgery Hx of tonsillectomy Social History household members: none Smoking Status: Former smoker alcohol intake: current Discharge Assessment & Plan Assessment and Plan Assessment: Stable status post lumbar hardware removal and fusion Plan of Treatment: Mobilize with PT. Limit bending, lifting, twisting. Weightbearing as tolerated with front wheel walker Ice as needed for pain DC home today with home health through [facility] care. Discharge Plan Discharge Plan Patient Disposition: Home Discharge orders & Medications Prescriptions: New acetaminophen 500 mg capsule 500 mg PO Q4H MDD Max 6 tabs per day PRN (Reason: Pain, Mild (1-3)) Qty: 90 RF: 0 hydroxyzine pamoate 25 mg Capsule 25 mg PO Q4HR PRN (Reason: spasms) Qty: 40 RF: 0 oxycodone [OxyContin] 10 mg Tablet,Oral Only,Ext.Rel.12 Hr 10 mg PO BID PRN (Reason: Severe pain) Qty: 30 RF: 0 oxycodone 5 mg Tablet 10 mg PO Q3HR PRN (Reason: Pain, Severe (7-10)) Qty: 60 RF: 0 docusate sodium 100 mg Capsule 100 mg PO BID PRN (Reason: Constipation from the narcotic pain meds) Qty: 40 RF: 0 Continued sulfasalazine 500 MG tablet 1,000 mg PO BID Qty: 0 RF: 0 folic acid 1 MG tablet 400 mg PO QDAY Qty: 0 RF: 0 atorvastatin [Lipitor] 20 MG tablet 20 mg PO HS Qty: 0 RF: 0 tolterodine 2 MG tablet 2 mg PO BID Qty: 0 RF: 0 venlafaxine 75 MG tablet 75 mg PO QAM Qty: 0 RF: 0 gabapentin [Neurontin] 600 MG tablet 600 mg PO TID Qty: 0 RF: 0 letrozole [Femara] 2.5 MG tablet 2.5 mg PO QDAY Qty: 0 RF: 0 celecoxib [Celebrex] 200 mg Capsule 200 mg PO DAILY RF: 0 latanoprost 0.005 % Drops 1 drp EYE-BOTH BEDTIME RF: 0 alendronate 70 mg Tablet 70 mg PO QWEEK RF: 0 pantoprazole [Protonix] 40 mg Tablet,Delayed Release (Dr/Ec) 40 mg PO DAILY RF: 0 lisinopril 10 mg Tablet 10 mg PO DAILY RF: 0 furosemide 20 mg Tablet 20 mg PO DAILY RF: 0 albuterol sulfate [Ventolin HFA] 90 mcg/actuation Hfa Aerosol Inhaler 2 puff INHALATION Q4-6H PRN (Reason: Shortness Of Breath) RF: 0 ibuprofen 200 mg Capsule 400 mg PO QID RF: 0 naproxen sodium [Aleve] 220 mg Capsule 220 mg PO BID PRN (Reason: Pain) RF: 0 Follow up/Referrals: Clive Barrientos MD [Primary Care Provider] - Bryce Evangelista MD [Physician] - (10-14 days for postoperative visit) Diet/Activity/Treatments Diet: Diet as Tolerated and Regular Activity: Limit bending, lifting, twisting. Weightbearing as tolerated with front wheeled walker. Continue with home exercises as directed by your physical therapist. Cold/Heat Therapy: Use ice as needed for pain Skin/Wound/Dressing Care Report to your healthcare provider any signs of infection, such as:: chills, fever, night sweats, unusual drainage and unusual redness Dressing: Keep dressing in place until next visit. Okay to shower. Call the office or change dressing if it becomes wet, soiled, saturated. Visit Report/Discharge Packet Instructions: DI for Prescription Opioid Use, DI for Transforaminal Lumbar Interbody Fusion Stand Alone Forms: Surgery Discharge Discharge Data Primary Care Provider: Clive Barrientos Quality VTE Deep Vein Thrombosis/Pulmonary Embolism Present on Admission: No
[2021-01-28] MEDS: HYDROMORPHONE 0.5 MG INJ IV (10:16)
[2021-01-28] MEDS: SODIUM CHLORIDE 0.9% FLUSH 10 ML IV (10:17)
--- NOTE | 2021-01-28 10:25 | CM.DPC ---
DCP Cont: Patient is to be discharged home today. Called Miguelina at [facility] and gave her an update, letting her know that DC Summary and orders would be faxed to her. Checked in with patient, and gave her an [facility] brochure. She has a friend who is a physical therapist that will pick her up. Gave her copy of [facility] as well. Spoke to Care Walker, PAC ortho, and gave her update on home health for patient, which she gave verbal ok. P: Patient is discharging home with [facility]. Faxed [place] DC Summary, orders, and face to face. Cynthia Vera RN/Clear Coat Sprayer
--- NOTE | 2021-01-28 10:52 | PC.NURSE ---
Addendum entered by Mary Villagran R.N. 01/28/21 11:14: Also discharged with her FWW Original Note: Pt A&OX3, VSS, afebrile on RA. Overnight patient with urinary retention but able to void 250 cc. Pt encouraged to drink fluid this a.m. and medicated with scheduled medications including oxybutin. Pt doing well ambulating and cleared for discharge with PT/OT, with referral for home health. Pt reports pain in R hip and back 6- this a.m. medicated with PRN pain medications. PA at bedside clearing patient for home discharge. Her friend Sona arrived, assisted with PT session and assisted with discharge home. Pt verbalizes understanding of activity, restrictions, incision care, signs/symptoms worsening, infection as well as medications and follow up instructions. HOSPITAL CLEANER escorted patient via w/ch to private vehicle with her friend with all of her belongings and CPAP machine.
--- NOTE | 2021-01-28 10:56 | PT.IPTN ---
Current Diagnoses Other forms of scoliosis, lumbar region (01/25/21) Spinal stenosis, lumbar region without neurogenic claudication (01/25/21) Arthrodesis status (01/25/21) Surgery Performed Operation Date: 01/25/21 08:45 Actual Procedures p L2-5 TLIF,L2-S1 PSF w/instrumentation L5-S1 lumbar HWR,exploration of fusion,repeat laminectomy,reinsertion of hardware(Not Applicable) - Bryce Evangelista MD Physical Therapy Treatment Note M2 PT-IP Current Condition Start: 01/26/21 13:39 Freq: NEEDED Status: Discharge Protocol: Document 01/26/21 10:15 AB (Rec: 01/26/21 13:50 AB [id number]) Physical Therapy Current Condition Current Condition Evaluation Date 01/26/21 Treatment Diagnosis s/p L3-4, L4-5, L5S1 TLIF; difficulty in walking Onset Date 01/25/21 M3 PT-IP Subjective Start: 01/26/21 13:39 Freq: NEEDED Status: Discharge Protocol: Document 01/28/21 10:21 [place] (Rec: 01/28/21 11:34 [place] [id number]) Subjective Physical Therapy Visit Type Type Treatment Note Visit Start Time 10:21 Visit Stop Time 10:56 Total Visit Minutes 35 Number of COOK SHORT ORDER Visits 4 Physical Therapy Visit Comments Patient Comments Completed caregiver training M4 PT-IP Mobility and Gait Start: 01/26/21 13:39 Freq: NEEDED Status: Discharge Protocol: Document 01/28/21 10:21 [place] (Rec: 01/28/21 11:34 [place] [id number]) PT-Bed Mobility Assessment Rolling Type of Rolling Log Rolling Level of Assist Contact Guard Assistance Supine to Sit Supine to Sit Contact Guard Assistance,1 Person Assistance Sit to Supine Sit to Supine Minimal Assistance Scooting Scooting to Edge of Bed Standby Assistance PT-Transfer Assessment Sit to and From Stand Sit to and from Stand Contact Guard Assistance,1 Person Assistance,Use of Upper Extremities Equipment Transfer Assistive Device Gait Belt,Front Wheeled Walker Orthotic/Prosthetic Devices or Brace: No Transfers Transfer Technique ambulated using FWW Transfer Ability Level of Assist Contact Guard Assistance, Minimal Assistance,Use of Upper Extremities Comments Mobility Comments Pt in chair upon arrival from therapy w/ caregiver in room who is also a [employer] ORDER. Pt able to recall 3/3 spinal precautions. Pts caregiver able to appropriately apply gait belt and CGA for sit<>stand w/ FWW. Pt then ambulated SBA to CGA into hallway to sit in w/c for transport to stairs for energy conservation, CGA for stand<>sit in w/c. Demonstrated example of how to complete stairs, then pts caregiver assisted patient in ascending/descending 3 steps w / L rail CGA and cues for sequencing. Pt and caregiver state they feel safe to complete steps at home. Pt then ambulated ~60 ft back to room w/ FWW SBA to CGA. Pt stand<>sit in bed CGA, sit<> sidelying Min A for LE guidance into bed. CGA for logroll. Pt left in bed w/ all needs in reach, bed alarm on and caregiver in room. Pt and caregiver state they feel ready to return home and have no further questions or needs. Pt will benefit from home health which has been set up. Gait Assessment Gait Gait Assistance Required: Contact Guard Assist Distance (Feet) 80 Able to Maintain Weight Bearing Status Yes During Gait Assistive Devices Assistive Device Gait Belt,Front Wheeled Walker Orthotic/Prosthetic Devices or Brace: No Factors Limiting Gait Function Factors Limiting Gait Function Decreased Activity Tolerance, Decreased Strength,Difficulty Following Directions,Limited Range of Motion,Pain,Poor Balance,Poor Safety Awareness Comments Gait Comments Pt ambulated ~80 ft total w/ FWW and CGA. Pt showed improved tolerance for activity and improved heel toe walking. Stair Climbing Assessment Evaluation Level of Assist On Stairs Contact Guard Assistance,1 Person Assistance Devices Stair Climbing Assistive Devices Left Railing Technique/Endurance Stair Climbing Direction Ascend and Descend Stair Climbing Technique Step to Step Number of Steps Climbed 3 Stair Climbing Set # Repetitions (reps) 1 Comments Stair Climbing Comments Pt ascended/descended 3 steps w/ L rail w/ CGA and cues appropriately provided by patients caregiver who is a C[employer] SH[employer] ORDER. Pt and caregiver state they feel safe to complete steps at home. PT-Balance Assessment Sitting Balance and Reactions Static Sitting Balance Ability Good Dynamic Sitting Balance Ability Fair Standing Balance and Reactions Static Standing Balance Ability Fair Dynamic Standing Balance Ability Fair Device Used FWW M5 PT-IP Objective Assessments Start: 01/26/21 13:39 Freq: NEEDED Status: Discharge Protocol: Document 01/26/21 10:15 AB (Rec: 01/26/21 13:50 AB [id number]) Orientation Orientation/Cognition Level of Alertness Alert Orientation Name,Place,Situation Language Function Ability No Deficits Noted Safety Awareness Decreased Safety Awareness Memory Description Short Term Impaired Gross Range of Motion Lower Extremity ROM Assessment Within Functional Limits Strength Lower Extremity Strength Assessment Bilaterally Impaired Hip 4-/5 Knee 4-/5 Coordination Assessment Gross Coordination Gross Coordination WNL Sensation Assessment Sensation Gross Sensation WNL Muscle Tone Muscle Tone WNL Yes M6 PT-IP Treatment Start: 01/26/21 13:39 Freq: NEEDED Status: Discharge Protocol: Document 01/28/21 10:21 [place] (Rec: 01/28/21 11:34 [place] [id number]) Physical Therapy Treatment Education Education Provided Precautions,Weight Bearing Status,Post-Op Packet,Safety M7 PT-IP Assessment and Plan Start: 01/26/21 13:39 Freq: NEEDED Status: Discharge Protocol: Document 01/28/21 10:21 KS (Rec: 01/28/21 11:34 [place] [id number]) PT Summary Assessment and Plan Potential Rehabilitation Potential Good Status of Condition at Evaluation Evolving Summary Impairments Pain,ROM,Strength,Balance, Coordination,Sensation,Tone, Cognition,Bed Mobility, Transfers,Gait,Activity Tolerance Progress Towards Goals Progressing Toward Goals Assessment Summary Completed caregiver training w / patients caregiver who is a licensed C[employer] SH[employer] ORDER. Pt CGA for logroll, Min A for sit<> sidelying for LE guidance into bed, SBA to CGA for transfers and ambulation. Pt may go home when medically stable and will benefit from HHPT to improve balance, strength, and functional mobility. Goals Bed Mobility Goal Standby Assistance Transfer Goal Standby Assistance,Front Wheeled Walker Gait Goal Standby Assistance,Front Wheel Walker Gait Distance 100 Other Goals improve bed mobility mod I improve ambulation using FWW 200 ft SBA up/down 2 steps R rail SBA Days to Meet Goals 5 Frequency of Treatment Frequency Of Treatment Twice a Day Treatment Plan Physical Therapy Treatment Plan Bed Mobility Training,Transfer Training,Gait Training, Therapeutic Exercise,Balance Retraining,Post Op Education, Discharge Planning,Hot or Cold Pack,Neuromuscular Re-ed, Coordination Retraining,Manual Therapy Precautions Lumbar Precautions Log Roll,No Twisting,Limit Bending,Lifting Restriction of 10 lbs,Gait Belt above Incisional Area Recommendations To Nursing Amount of Assist Needed 1 Person Assist Discharge Recommendations PT Discharge Recommendations Home with / Assist Available,Home Health
== END 2021-01-28 11:14 | disposition home health service (06) | DRG 454 ==
PROVIDERS: Orthopaedic Surgery; Admitting Provider Orthopaedic Surgery Orthopaedic Surgery of the Spine; Family Provider Family Medicine; PCP Family Medicine; Referring Provider Orthopaedic Surgery Orthopaedic Surgery of the Spine; Visit Provider Orthopaedic Surgery
PROC: 0SG10AJ Fusion of 2 or more Lumbar Vertebral Joints with Interbody Fusion Device, Posterior Approach, Anterior Column, Open Approach (ICD-10-PCS; principal; 2021-01-25 08:45)
DX: M48.062 Spinal stenosis, lumbar region with neurogenic claudication (principal); M96.0 Pseudarthrosis after fusion or arthrodesis; M41.9 Scoliosis, unspecified; M43.16 Spondylolisthesis, lumbar region; M96.1 Postlaminectomy syndrome, not elsewhere classified; M85.88 Other specified disorders of bone density and structure, other site; G89.18 Other acute postprocedural pain; E78.5 Hyperlipidemia, unspecified; C50.912 Malignant neoplasm of unspecified site of left female breast; I10 Essential (primary) hypertension; G47.33 Obstructive sleep apnea (adult) (pediatric); Z87.891 Personal history of nicotine dependence; Z20.822 Contact with and (suspected) exposure to COVID-19; Z98.1 Arthrodesis status; X58.XXXA Exposure to other specified factors, initial encounter
CPT/HCPCS: 36415; 72100; 76000; 85014; 85018; 87635; 94760; 97116; 97162; 97166; 97530; 97535; C1776; C9803; C9290; J0330; J0690; J1170; J2060; J2250; J2405; J2704; J3010; J3360; J3410